=== PATIENT | male | born 1965 | race Caucasian/White ===

== ENCOUNTER 2019-08-05 15:01 | Outpatient (CLI) | payer MEDICARE, SELFPAY ==
--- NOTE | ~2019-08-05 | XR_ITS ---
EXAMINATION: XR shoulder LT min 2V DATE: 08/05/2019 15:44 INDICATION: Left shoulder pain. TECHNIQUE: 2 views of left shoulder were obtained. COMPARISON: None. FINDINGS: Bone alignment is normal. No fracture. There is mild osteoarthritis of glenohumeral joint a nd acromioclavicular joint. IMPRESSION: 1. Mild polyarticular osteoarthritis. Reviewed, dictated and finalized at location A. FERRY MASTER
--- NOTE | ~2019-08-05 | XR_ITS ---
EXAMINATION: XR shoulder RT min 2V EXAM DATE: 08/05/2019 15:43 INDICATION: No known recent injury provided at this time. Pain of the right shoulder. TECHNIQUE: Frontal and lateral projections of the right shoulder. There is no prior study for get sosa. FINDINGS: There is mild to moderate glenohumeral and acromioclavicular joint primary osteoarthritis. There are no acute fractures or dislocations identified. There is no subcutaneous gas. The soft tis freddy is unremarkable. There are no radiopaque foreign bodies. IMPRESSION: Mild to moderate shoulder osteoarthritis. Reviewed, dictated and finalized at location B. NTEER ASSISTANT
== END 2019-08-05 15:02 | disposition home or self-care (01) ==
PROVIDERS: PCP Nurse Practitioner Family; Visit Provider Nurse Practitioner Family
DX: M25.511 Pain in right shoulder (principal); M25.512 Pain in left shoulder
CPT/HCPCS: 73030

== ENCOUNTER 2019-08-16 07:22 | Outpatient (CLI) | payer MEDICARE, SELFPAY ==
[2019-08-16 07:41] LABS: Hemoglobin A1C 8.6 % (<5.7)
== END 2019-08-16 07:23 | disposition home or self-care (01) ==
LOC: CHSLAB 07:25
PROVIDERS: PCP Nurse Practitioner Family; Visit Provider Nurse Practitioner Family
DX: E11.9 Type 2 diabetes mellitus without complications (principal)
CPT/HCPCS: 36415; 83036

== ENCOUNTER 2019-10-29 09:02 | Outpatient (CLI) | payer MEDICARE, SELFPAY ==
[2019-10-29 09:33] LABS: MALB Creatinine Ratio 58.1 mg/g (0-30); Microalbumin Urine Random 77.5 mg/L
[2019-10-29 10:23] LABS: Alanine Aminotransferase 37 U/L (16-63); Albumin Level 3.8 g/dL (3.4-5.0); Alkaline Phosphatase 88 U/L (46-116); Anion Gap 13.3 mmol/L (7-16); Aspartate Amino Transferase 26 U/L (15-37); Bilirubin,Total 0.5 mg/dL (0.00-1.00); Blood Urea Nitrogen 16 mg/dL (7-18); Calcium 8.9 mg/dL (8.5-10.1); Carbon Dioxide 29 mmol/L (21-32); Chloride 102 mmol/L (98-108); Cholesterol 107 mg/dL (0-200); Estimated Glomerular Filt Rate > 60; Glucose 212 mg/dL (70-99); HDL Direct 26 mg/dL (40-60); LDL Cholesterol Calculated 46 mg/dL (<130); Osmolality Calculated 297 mOsm/kg (285-295); Potassium 4.3 mmol/L (3.5-5.1); Sodium 140 mmol/L (136-145); Thyroid Stimulating Hormone 1.41 uIU/mL (0.36-3.74); Total Protein 7.2 g/dL (6.4-8.2); Triglycerides 175 mg/dL (0-150)
[2019-11-02 22:27] LABS: C-Peptide 2.22 ng/mL (0.80-3.85)
[2019-11-03 07:03] LABS: Glutamic acid decarboxylase AA <5 IU/mL (<5)
[2019-11-05 23:41] LABS: Zinc Transporter 8 Antibody <10 U/mL (<15)
[2019-11-06 23:26] LABS: Islet Cell Antibody Screen NEGATIVE (NEGATIVE)
== END 2019-10-29 09:03 | disposition home or self-care (01) ==
PROVIDERS: PCP Family Medicine; Visit Provider Internal Medicine Endocrinology, Diabetes & Metabolism
DX: E10.9 Type 1 diabetes mellitus without complications (principal); E66.01 Morbid (severe) obesity due to excess calories
CPT/HCPCS: 36415; 80053; 80061; 82043; 84443; 84681; 86341

== ENCOUNTER → 2020-04-18 13:40 | Outpatient (CLI) | payer MEDICARE, SELFPAY ==
--- NOTE | ~2020-04-18 | MR_ITS ---
EXAMINATION: MR lumbar spine wo con DATE: 04/18/2020 14:32 INDICATION: Lumbar radiculopathy. Low back pain. TECHNIQUE: Magnetic resonance imaging (MRI) of the lumbar spine was performed without intravenous con trast. Sequences included sagittal T2-weighted FSE, sagittal T2-weighted FS FSE, sagittal T1-weighted FSE, and axial T2-weighted FSE. COMPARISON: Lumbar spine MRI 06/10/2017 FINDINGS: There is 4 degrees dextrocurvature of lumbar spine. There are Schmorl's nodes at T11-T12 an d T12-L1. Intervertebral disc heights are normal. The distal spinal cord signal intensity is normal. The conus medullaris is at T12-L1. The following disc levels are specifically discussed: L1-L2: The disc does not extend beyond the endplate margin. There is moderate right and mild left fac et joint osteoarthritis. There is mild right neural foraminal stenosis. There is no central canal martin nosis. L2-L3: The disc is mildly bulging. There is severe bilateral facet joint osteoarthritis. There is mil d bilateral neural foraminal stenosis. There is no central canal stenosis. L3-L4: The disc is mildly bulging. There is severe bilateral facet joint osteoarthritis. There is mil d bilateral neural foraminal stenosis. There is no central canal stenosis. L4-L5: The disc does not extend beyond the endplate margin. There is severe bilateral facet joint ost eoarthritis. There is moderate bilateral neural foraminal stenosis. There is mild central canal steno sis. L5-S1: The disc does not extend beyond the endplate margin. There is severe right facet joint osteoar thritis. There is ankylosis of left facet joint with severe hypertrophy. There is mild right and mode rate left neural foraminal stenosis. There is no central canal stenosis. IMPRESSION: 1. Moderate lower lumbar spondylosis, worsened from 06/10/2017. Reviewed, dictated and finalized at location A.
== END ==
PROVIDERS: Visit Provider Nurse Practitioner Family
DX: G89.29 Other chronic pain (principal); M54.16 Radiculopathy, lumbar region; M47.816 Spondylosis without myelopathy or radiculopathy, lumbar region
CPT/HCPCS: 72148

== ENCOUNTER 2020-06-05 15:50 | Outpatient (CLI) | payer MEDICARE, SELFPAY ==
[2020-06-07 12:24] LABS: SARS-CoV-2 RNA PCR Positive
== END 2020-06-05 15:51 | disposition home or self-care (01) ==
LOC: CHSLAB 15:52
PROVIDERS: PCP Nurse Practitioner Family; Visit Provider Nurse Practitioner Family
DX: U07.1 COVID-19 (principal); R05 Cough
CPT/HCPCS: 87635; C9803; U0003

== ENCOUNTER 2020-06-30 08:46 | Outpatient (CLI) | payer MEDICARE, SELFPAY ==
[2020-07-01 19:32] LABS: SARS-CoV-2 RNA PCR Negative
== END 2020-06-30 08:47 | disposition home or self-care (01) ==
LOC: CHSLAB 08:49
PROVIDERS: PCP Family Medicine; Visit Provider Nurse Practitioner Family
DX: Z01.818 Encounter for other preprocedural examination (principal); Z20.822 Contact with and (suspected) exposure to COVID-19
CPT/HCPCS: C9803; U0003

== ENCOUNTER 2020-10-02 08:39 | Outpatient (CLI) | payer MEDICARE, SELFPAY | END 2020-10-02 08:40 | disposition home or self-care (01) | LOC: ANHCOVIDVC 08:39 | PROVIDERS: PCP Family Medicine | DX: Z23 Encounter for immunization (principal) | CPT/HCPCS: 0001A; 91300 ==

== ENCOUNTER 2020-10-23 08:30 | Outpatient (CLI) | payer MEDICARE, SELFPAY | END 2020-10-23 08:31 | disposition home or self-care (01) | LOC: ANHCOVIDVC 08:31 | PROVIDERS: PCP Family Medicine | DX: Z23 Encounter for immunization (principal) | CPT/HCPCS: 0002A; 91300 ==

== ENCOUNTER 2021-07-13 13:18 | Outpatient (CLI) | payer MEDICARE, SELFPAY ==
--- NOTE | ~2021-07-13 | CT_ITS ---
EXAMINATION: CT hip LT wo con, CT abdomen pelvis wo con DATE: 07/13/2021 13:49 INDICATION: 2 months of the left groin pain. Unilateral left inguinal hernia without obstruction. TECHNIQUE: 1. Computed tomography (CT) of the abdomen and pelvis was performed without intravenous contrast. Aut omated exposure control and iterative reconstruction technique were employed. The dose-length product for the combined studies was 1925.20 mGy-cm. 2. High resolution computed tomography (CT) of the left hip was performed without intravenous contras t. Additional sagittal and coronal reconstructions were performed. Automated exposure control and ite rative reconstruction technique were employed. The dose-length product for the combined studies was 1 925.20 mGy-cm. COMPARISON: Left hip radiographs dated 06/03/2017 FINDINGS: Abdomen and pelvis: Mild discoid atelectasis at the lingula. Heart size is normal. No pericardial or pleural effusion. Di ffuse hepatic steatosis. Gallbladder, spleen, pancreas, bilateral adrenal glands and kidneys are norm al. Bowels including the appendix are normal. Prostatomegaly. Bladder is normal. No free intraperiton eal gas or fluid. No pathologically enlarged abdominal or pelvic lymphadenopathy. Small fat-containin g left inguinal hernia. There are bridging osteophytes at multiple levels in the lower thoracic and u pper lumbar spine, consistent with diffuse idiopathic skeletal hyperostosis (DISH). Multilevel severe bilateral lumbar facet osteoarthritis spinal stimulator lead with partial supply to the subcutaneous tissues at the right buttock and with a pair of leads extending into the central canal at the level of T12-L1 and extending cephalad with distal tips at the level of T8. Left hip: Alignment is normal. No fracture or suspected avascular necrosis. Left hip osteoarthritis with mild t o moderate nonuniform joint space narrowing greatest posteriorly and with small marginal osteophytes and mild subarticular cystic change along the superolateral to posterior lateral rim of the acetabulu m. No left hip joint effusion. Similar findings are seen at the contralateral right hip on the larger field of view images of the pelvis. IMPRESSION: 1. No acute intra-abdominal/pelvic process. 2. Small fat-containing left inguinal hernia. 3. Mild to moderate bilateral hip osteoarthritis. 4. Prostatomegaly. 5. Diffuse hepatic steatosis. Reviewed, dictated and finalized at location A. OM POLISHER IMPRESSION: 1. No acute intra-abdominal/pelvic process. 2. Small fat-containing left inguinal hernia. 3. Mild to moderate bilateral hip osteoarthritis. 4. Prostatomegaly. 5. Diffuse hepatic steatosis.
== END 2021-07-13 13:19 | disposition home or self-care (01) ==
LOC: CHSIMG 13:21
PROVIDERS: PCP Family Medicine; Visit Provider Family Medicine
DX: K40.90 Unilateral inguinal hernia, without obstruction or gangrene, not specified as recurrent (principal); M16.12 Unilateral primary osteoarthritis, left hip
CPT/HCPCS: 73700; 74176

== ENCOUNTER 2021-08-20 08:21 | Outpatient (CLI) | payer MEDICARE, SELFPAY ==
--- NOTE | ~2021-08-20 | XR_ITS ---
EXAMINATION: XR hip LT 2V w AP pelvis EXAM DATE: 08/20/2021 08:39 INDICATION: Chronic left hip pain. TECHNIQUE: Left hip frontal, 'frog leg' projections for interpretation. Frontal projection pelvis. There is no prior study for comparison. FINDINGS: Smooth hip femoral head contour, no radiographic evidence of avascular necrosis. There are no acute pelvic or left hip fractures or dislocations identified. There is no subcutaneous gas. Th e soft tissue is unremarkable. Spine stimulator device. There is moderate symmetric bilateral hip p rimary osteoarthritis. IMPRESSION: Moderate hip osteoarthritis. Reviewed, dictated and finalized at location B. N AMERICAN STUDIES PROFESSOR
== END 2021-08-20 08:22 | disposition home or self-care (01) ==
LOC: CHSIMG 08:24
PROVIDERS: PCP Family Medicine; Visit Provider Orthopaedic Surgery
DX: M25.552 Pain in left hip (principal)
CPT/HCPCS: 73502

== ENCOUNTER 2021-08-24 07:34 | Outpatient (CLI) | payer MEDICARE, SELFPAY ==
--- NOTE | ~2021-08-24 | XR_ITS ---
EXAMINATION: XR lg joint inject/aspiration EXAM DATE: 08/24/2021 09:20 INDICATION: Left hip arthritis, left hip pain. TECHNIQUE: This procedure was performed by Dr. Pramod Perez, radiologist. I discussed procedure inclu ding the risks, benefits and alternatives with the patient. Risks discussed included bleeding and inf ection. The patient understood the risks and agreed to proceed. A time-out was performed to verify the patient's name, date of , and procedure. The skin over lying the left hip joint was prepped and draped in usual sterile fashion. Anesthetic was administere d with 3 milliliters 1% lidocaine subcutaneously. A 22 G 5 inch needle was advanced under fluoroscop ic guidance into the joint. Total of 2 mL of Omnipaque 240 confirmed intra-articular position of t he needle. Subsequently, injectate consisting of 80 mg Depo-Medrol and 2 cc bupivacaine was instille d. The needle was removed and the entry site was cleaned and dressed. There were no immediate comp lications. Pulsed dose reduction fluoroscopy was used with fluoroscopic time of 0.1 minus. The DAP for this procedure was 0.73 Gycm2. A total of 4 images obtained for the exam. The procedure was perf ormed on 08/24/2021. FINDINGS: Real-time fluoroscopy demonstrates the needle and contrast in the left hip joint. Patient s tates preprocedure left hip pain was 8.5, post procedure pain 6/10. IMPRESSION: Successful left hip joint injection. Reviewed, dictated and finalized at location D. HER VOCATIONAL TRAINING
== END 2021-08-24 07:35 | disposition home or self-care (01) ==
LOC: CHSIMG 07:36
PROVIDERS: PCP Family Medicine; Visit Provider Orthopaedic Surgery
DX: M16.12 Unilateral primary osteoarthritis, left hip (principal)
CPT/HCPCS: 20610; J1030; Q9965

== ENCOUNTER 2021-08-28 12:04 | Outpatient (CLI) | payer MEDICARE, SELFPAY ==
[2021-08-28 16:59] LABS: Anion Gap 8 mmol/L (8-16); Blood Urea Nitrogen 17 mg/dL (9-20); Calcium 9.6 mg/dL (8.4-10.2); Carbon Dioxide 29 mmol/L (22-30); Chloride 97 mmol/L (98-107); Estimated Glomerular Filt Rate > 60; Glucose 260 mg/dL (65-110); HDL Direct 28 mg/dL; Potassium 4.4 mmol/L (3.4-5.0); Sodium 134 mmol/L (137-145)
[2021-08-28 17:05] LABS: Creatinine Urine 91.7 mg/dL
[2021-08-28 17:09] LABS: LDL Cholesterol Direct 53 mg/dL; MALB Creatinine Ratio 139.7 mg/g (0-30); Microalbumin Urine Random 128.1 mg/L (0-16.7)
== END 2021-08-28 12:05 | disposition home or self-care (01) ==
LOC: ANHWCLAB 12:05
PROVIDERS: PCP Family Medicine; Visit Provider Internal Medicine Endocrinology, Diabetes & Metabolism
DX: E11.9 Type 2 diabetes mellitus without complications (principal); E78.5 Hyperlipidemia, unspecified; Z79.4 Long term (current) use of insulin
CPT/HCPCS: 36415; 80048; 82043; 82607; 83718; 83721; 84443

== ENCOUNTER 2022-08-22 07:20 | Outpatient (CLI) | payer MEDICARE, SELFPAY ==
[2022-08-22 07:47] LABS: Creatinine Urine 96.44 mg/dL (40-278); MALB Creatinine Ratio 94.9 mg/g (0-30); Microalbumin Urine Random 91.6 mg/L
[2022-08-22 09:45] LABS: Alanine Aminotransferase 30 U/L (16-63); Alkaline Phosphatase 81 U/L (46-116); Anion Gap 4 mmol/L (8-16); Aspartate Amino Transferase 23 U/L (15-37); Bilirubin,Total 0.5 mg/dL (0.00-1.00); Calcium 9.2 mg/dL (8.5-10.1); Carbon Dioxide 33 mmol/L (21-32); Chloride 103 mmol/L (98-108); Cholesterol 111 mg/dL (0-200); Estimated Glomerular Filt Rate > 60; Free T4 Free Thyroxine 1.02 ng/dL (0.76-1.46); Glucose 164 mg/dL (70-99); HDL Direct 29 mg/dL (40-60); LDL Cholesterol Calculated 51 mg/dL (<130); Potassium 4.2 mmol/L (3.5-5.1); Sodium 140 mmol/L (136-145); Thyroid Stimulating Hormone 2.88 uIU/mL (0.36-3.74); Total Protein 7.8 g/dL (6.4-8.2); Triglycerides 155 mg/dL (0-150); Vitamin B12 419 pg/mL (193-986)
[2022-08-22 09:49] LABS: Blood Urea Nitrogen 20 mg/dL (7-18); Osmolality Calculated 296 mOsm/kg (285-295)
[2022-08-25 21:05] LABS: Vitamin D 25 Hydroxy 14 ng/mL (30-100)
== END 2022-08-22 07:21 | disposition home or self-care (01) ==
LOC: CHSLAB 07:22
PROVIDERS: PCP Family Medicine; Visit Provider Nurse Practitioner Family
DX: R80.9 Proteinuria, unspecified (principal); I15.2 Hypertension secondary to endocrine disorders; E78.5 Hyperlipidemia, unspecified; E11.69 Type 2 diabetes mellitus with other specified complication; E11.65 Type 2 diabetes mellitus with hyperglycemia; E11.59 Type 2 diabetes mellitus with other circulatory complications; E11.29 Type 2 diabetes mellitus with other diabetic kidney complication; Z79.4 Long term (current) use of insulin
CPT/HCPCS: 36415; 80053; 80061; 82043; 82306; 82607; 84439; 84443

== ENCOUNTER 2022-09-23 10:18 | Outpatient (CLI) | payer MEDICARE, SELFPAY ==
[2022-09-23 11:22] LABS: Prostate Specific Antigen 1.4 ng/mL (< OR = 4.0)
== END 2022-09-23 10:19 | disposition home or self-care (01) ==
LOC: CHSLAB 10:19
PROVIDERS: PCP Nurse Practitioner Family; Visit Provider Nurse Practitioner Family
DX: R39.12 Poor urinary stream (principal); Z12.5 Encounter for screening for malignant neoplasm of prostate
CPT/HCPCS: 36415; 84153; G0103

== ENCOUNTER 2023-07-14 07:13 | Outpatient (CLI) | payer MEDICARE, SELFPAY ==
--- NOTE | ~2023-07-14 | XR_ITS ---
Right Shoulder Technique: AP and scapular Y views were obtained. Clinical History: Pain Findings: No fracture or dislocation is seen. Osseous alignment is anatomic. The glenohumeral and acr omioclavicular joint spaces are preserved. Soft tissues are unremarkable. Impression: Unremarkable right shoulder radiographs. Reviewed, dictated and finalized at [facility]. NHOUSE INSTRUCTOR Impression: Unremarkable right shoulder radiographs.
--- NOTE | ~2023-07-14 | XR_ITS ---
XR_[id number]_CR 07/14/2023 08:04 Indication: Neck pain. Bilateral shoulder pain. Procedure: 4 view cervical spine Comparison: 02/27/2017 Findings: There is disc narrowing at C5-6 and C6-7. Prominent ventral osteophytes at multiple levels. There is moderate multilevel uncinate and facet hypertrophy. Odontoid process is normal. Lateral mas ses normally aligned. No prevertebral soft tissue swelling. Impression: 1: Moderate cervical spondylosis. Reviewed, dictated and finalized at location B. STEWARD Impression: 1: Moderate cervical spondylosis.
--- NOTE | ~2023-07-14 | XR_ITS ---
Left Shoulder Technique: AP and scapular Y views were obtained. Clinical History: Pain Findings: No fracture or dislocation is seen. Osseous alignment is anatomic. The glenohumeral and acr omioclavicular joint spaces are preserved. Soft tissues are unremarkable. Impression: Unremarkable left shoulder radiographs. Reviewed, dictated and finalized at [facility]. HAULER Impression: Unremarkable left shoulder radiographs.
[2023-07-14 07:39] LABS: MALB Creatinine Ratio 46.5 mg/g (0-30); Microalbumin Urine Random 64.5 mg/L
[2023-07-14 08:33] LABS: Alanine Aminotransferase 41 U/L (16-63); Albumin Level 3.7 g/dL (3.4-5.0); Alkaline Phosphatase 80 U/L (46-116); Anion Gap 9 mmol/L (8-16); Aspartate Amino Transferase 23 U/L (15-37); Bilirubin,Total 0.4 mg/dL (0.00-1.00); Blood Urea Nitrogen 17 mg/dL (7-18); Calcium 8.8 mg/dL (8.5-10.1); Carbon Dioxide 30 mmol/L (21-32); Chloride 99 mmol/L (98-108); Cholesterol 112 mg/dL (0-200); Estimated Glomerular Filt Rate > 60; Glucose 168 mg/dL (70-99); HDL Direct 27 mg/dL (40-60); LDL Cholesterol Calculated 45 mg/dL (<130); Osmolality Calculated 291 mOsm/kg (285-295); Potassium 3.7 mmol/L (3.5-5.1); Sodium 138 mmol/L (136-145); Thyroid Stimulating Hormone 3.44 uIU/mL (0.36-3.74); Total Protein 7.5 g/dL (6.4-8.2); Triglycerides 202 mg/dL (0-150); Vitamin B12 388 pg/mL (193-986)
[2023-07-17 11:38] LABS: Vitamin D 25 Hydroxy 36 ng/mL (30-100)
== END 2023-07-14 07:14 | disposition home or self-care (01) ==
LOC: CHSLAB 07:15
PROVIDERS: PCP Family Medicine; Visit Provider Internal Medicine Endocrinology, Diabetes & Metabolism
DX: R80.9 Proteinuria, unspecified (principal); E78.5 Hyperlipidemia, unspecified; E55.9 Vitamin D deficiency, unspecified; E11.69 Type 2 diabetes mellitus with other specified complication; E11.29 Type 2 diabetes mellitus with other diabetic kidney complication; M43.02 Spondylolysis, cervical region
CPT/HCPCS: 36415; 72040; 73030; 80053; 80061; 82043; 82306; 82607; 84443

== ENCOUNTER 2023-07-15 10:55 | Outpatient (RCR) | payer MEDICARE, SELFPAY ==
[2023-07-15 11:09] VITALS: BP_SYST 152; BP_SYST 168
--- NOTE | 2023-07-15 11:55 | OPREHPOC ---
Outpatient Therapy Plan of Care This is a Multidisciplinary Plan of Care that may contain components documented by all disciplines (PT, OT, and ST.) PT Problem 1 PT Problem #1 Knowledge Deficit PT Goal 1 Goal Patient to demonstrate independence with HEP Target Visit 5 PT Problem 2 PT Problem #2 Pain PT Goal 1 Goal 1. Patient to report highest neck pain at 2/10 2. Patient to report no sleep disturbance due to neck pain Target Visit 10 PT Problem 3 PT Problem #3 Impaired Range of Motion PT Goal 1 Goal 1. Patient to demonstrate 60 deg of cervical rotation to return to driving without restriction 2. Patient to demonstrate 160 deg of B shoulder flexion with no increase in pain to return to house hold activities at PLOF Target Visit 10 PT Problem 4 PT Problem #4 Impaired Functional Mobil PT Goal 1 Goal 1. Patient to demonstrate 20% improvement on Quick Dash 2. Patient to demonstrate 20% improvement on NDI 3. Patient to report ability to lift objects over head for house hold tasks with no increase in B shoulder pain Target Visit 10
--- NOTE | 2023-07-15 11:56 | PTOPEVAL1 ---
Assessment and note entered by Vanessa Lowe DPT Evaluation Information Assessment Status Evaluation Diagnosis B shoulder pain, neck pain Onset 07/10/23 Subjective Information Patient reports he has had pain for the last year with worsening over the last month. He reports that neck pain is worse than B shoulder pain. He reports the L shoulder is worse than the R. He denies any radiating pain and headaches. He reports difficulty with sleeping, looking over his shoulder when driving and lifting objects. He also has back pain with a spinal stimulator and is on a disability. RTMD on 08/06/23. Reported Pain Level Pain Score 5,2,6: Self Report Assessment PT Clinical Summary Mr. Izquierdo is a 57 year old male who presents to PT with B shoulder and neck pain. Patient demonstrates decreased cervical ROM, decreased B shoulder ROM and impaired posture limiting his ability to sleep, drive and complete house hold tasks. He would benefit from skilled PT to address impairments and return to PLOF. Plan of Care Interventions Electrical Stimulation,Gait Training,Hot Pack/Cold Pack,Manual Therapy,Mechanical Traction,Neuro Re- education,Patient/Caregiver Educati,Therapeutic Activities,Therapeutic Exercise PT Services Indicated Yes Treatment Frequency and 2x weekly for 10 visits Duration These treatments will address the objective and functional deficits as defined above. The patient will be advanced safely and appropriately in order for the patient to progress towards his/her prior level of function. Additional exercises will be introduced and as well as a comprehensive home exercise program upon discharge, if needed, ?to ensure carryover of functional gains achieved in the clinic. This treatment plan has been reviewed and agreement upon by the patient.
--- NOTE | 2023-08-21 07:21 | PCPTNOTE ---
patient called and stated he could not make it in today
[2023-08-28 08:51] VITALS: BP_SYST 152; BP_SYST 168
--- NOTE | 2023-08-28 10:57 | OPREHPOC ---
Outpatient Therapy Plan of Care This is a Multidisciplinary Plan of Care that may contain components documented by all disciplines (PT, OT, and ST.) PT Problem 1 PT Problem #1 Knowledge Deficit PT Goal 1 Goal Patient to demonstrate independence with HEP Target Visit 5 Progress Met PT Problem 2 PT Problem #2 Pain PT Goal 1 Goal 1. Patient to report highest neck pain at 2/10 2. Patient to report no sleep disturbance due to neck pain Target Visit 10 Progress Not Met PT Problem 3 PT Problem #3 Impaired Range of Motion PT Goal 1 Goal 1. Patient to demonstrate 60 deg of cervical rotation to return to driving without restriction 2. Patient to demonstrate 160 deg of B shoulder flexion with no increase in pain to return to house hold activities at PLOF Target Visit 10 Progress Partially Met Comment cervical not met PT Problem 4 PT Problem #4 Impaired Functional Mobil PT Goal 1 Goal 1. Patient to demonstrate 20% improvement on Quick Dash 2. Patient to demonstrate 20% improvement on NDI 3. Patient to report ability to lift objects over head for house hold tasks with no increase in B shoulder pain Target Visit 10 Progress Not Met
--- NOTE | 2023-08-28 10:57 | PTOPDC ---
Assessment and note entered by Vanessa Bui DPT Evaluation Information Assessment Status Discharge Diagnosis B shoulder pain, neck pain Onset 07/10/23 Subjective Information patient reports that both shoulder have improved with less pain. he reports the neck is still sore but he does report feeling like he has more movement. he reports that his sleep has been most disturbed by other body regions. he states driving has improved but has soreness after 3 hours. he reports he is independent with HEP. Reported Pain Level Pain Score 3,2,1: Self Report Assessment PT Clinical Summary Mr. Izquierdo has attended 10 visits of skilled PT. He made progress during POC but did not meet all goals. He reports decreased in pain levels with improved mobility for driving and looking over his shoulder. He reports his sleep is still disturbed but due to hip pain rather than neck pain. He reports he is independent with HEP and is appropriate for DC at this time. Plan of Care PT Services Indicated No
== END 2023-08-28 11:04 | disposition home or self-care (01) ==
LOC: CHSPT 10:55
PROVIDERS: PCP Nurse Practitioner Family; Visit Provider Nurse Practitioner Family
DX: M25.512 Pain in left shoulder (principal); M25.511 Pain in right shoulder; M54.2 Cervicalgia
CPT/HCPCS: 97110; 97140; 97161

== ENCOUNTER 2023-10-09 14:01 | Outpatient (CLI) | payer MEDICARE, SELFPAY ==
--- NOTE | ~2023-10-09 | XR_ITS ---
EXAM: XR hip BI wo pelvis DATE: 10/09/2023 14:20 HISTORY: M25.551 - Pain in right hip . COMPARISON: None available. FINDINGS: Stimulator pack over the right pelvis. Normal mineralization. No fracture or dislocation. N o lytic or blastic lesion. Moderate bilateral superior hip joint space narrowing, subchondral scleros is, and subchondral/subcortical cyst. Pistol test center manager deformity on the right, and probably also on the le ft, partially obscured by positioning. Mild degenerative change in the bilateral SI joints. Scattered pelvic enthesopathy. No erosion or periosteal change. Soft tissues within normal limits. IMPRESSION: Moderate bilateral hip osteoarthritis. Reviewed, dictated and finalized at location K.
== END 2023-10-09 14:02 | disposition home or self-care (01) ==
LOC: CHSIMG 14:02
PROVIDERS: PCP Family Medicine; Visit Provider Nurse Practitioner Family
DX: M25.551 Pain in right hip (principal); M16.0 Bilateral primary osteoarthritis of hip
CPT/HCPCS: 73521

== ENCOUNTER 2023-11-05 13:17 | Outpatient (CLI) | payer MEDICARE, SELFPAY ==
--- NOTE | ~2023-11-05 | XR_ITS ---
EXAMINATION: XR lg joint inject/asp w image DATE: 11/05/2023 14:39 INDICATION: Right hip arthritis TECHNIQUE: A time-out was performed to verify the patient's name, date of , and procedure to b e performed. The procedure including the risks, benefits, and alternatives was discussed with the pat ient. Risks discussed included bleeding and infection. The patient understood the risks and agreed to proceed. The skin overlying the right hip joint was prepped and draped in usual sterile fashion. A nesthetic was administered with 1% lidocaine subcutaneously. A 22 G needle was advanced under fluoro scopic guidance into the joint. Injection of 1 mL of Omnipaque 240 confirmed intra-articular positio n of the needle. Subsequently, injectate consisting of 3 mL of a 2:1 mixture of 0.5% Marcaine: 80 mg /mm Depo-Medrol for a total dosage of 80 mg Depo-Medrol was instilled. Washout of contrast was seen c onfirming intra-articular administration. The needle was removed and the entry site was cleaned and d ressed. There were no immediate complications. Fluoroscopy exposure time was 0.1 minutes. The total number of images was 2. FINDINGS: Real-time fluoroscopy demonstrates the needle in the right hip joint. Patient's pain prior to procedure:8/10. Patient's pain following the procedure: 10/30. IMPRESSION: 1. Successful right hip joint injection of local anesthetic and steroid with decrease in the patient' s presenting pain. Reviewed, dictated and finalized at location A. IMPRESSION: 1. Successful right hip joint injection of local anesthetic and steroid with de crease in the patient's presenting pain.
== END 2023-11-05 13:18 | disposition home or self-care (01) ==
PROVIDERS: PCP Family Medicine; Visit Provider Orthopaedic Surgery
DX: M16.11 Unilateral primary osteoarthritis, right hip (principal)
CPT/HCPCS: 20610; 77002; J1010; Q9966

== ENCOUNTER 2024-10-18 09:15 | Outpatient (CLI) | payer MEDICARE, SELFPAY ==
--- OUTSIDE RECORDS SUMMARY | 2024-10-18 09:55 | XMS_ITS | Clinical Summary ---
Author Organization [facility] Address [address] [place] [id number] Care Team Providers Care Check Cashier Name Role Phone Unavailable Primary Care Provider Unavailabl e Social History Tobacco Use Types Packs/Day Years Used Date Smoking Tobacco: Never Assessed Sex and Gender Information Value Date Recorded Sex Assigned at Not on file Legal Sex Male 10:51 PM CDT Gender Identity Not on file Sexual Orientation Not on file Plan of Treatment Health Maintenance Due Date Last Done Comments Colorectal Cancer Screening Colonoscopy (10 Years) 1964 Annual Physical 10/02/1967 Hepatitis C 1982 DTaP, Tdap and Td Vaccines ( 1 - Tdap) 10/02/1983 Pneumococcal Vaccine: 50+ Ye ars (1 of 1 - PCV) 2014 Zoster Vaccines (1 of 2) 2014 COVID-19 Vaccine ( - 2023-2 5 season) 2024 RSV Immunization or 60+ Years (1 - 1-dose 75+ series) 10/02/2039 Meningococcal B Vaccine Aged Out No l onger eligible based on patient's age to complete this topic Meningococcal Vaccine Aged Out No jennifer cristo eligible based on patient's age to complete this topic RSV Immunizations Under 20 Months Aged Out No longer eligible based on patient's age to complete this topic
--- OUTSIDE RECORDS SUMMARY | 2024-10-18 09:55 | XMS_ITS ---
Author Organization [facility] Address [address] [place], [place] [address] Care Team Providers Care Ppa Teacher Name Role Phone Dovchristiano Antony Unavailable Unavailable YANA CHILDS Unavailable [phone] Allergies Allergen (clinical drug ingredient) Drug/Non Drug Allergy documented on EMR Reaction Allergy Type Onset Date Status Penicillin Unknown Drug Allergy Active REASON FOR VISIT *General care Medications Medication SIG (Take, Route, Frequency, Duration) Notes Start Date End Date Status Atenolol Active Vascepa Active Losartan Potassium A ctive dilTIAZem HCl Active hydroCHLOROthiazide Active HumuLIN R U-500 (CONCENTRATED) Active Encounters Encounter Location Date Provider Diagnosis [address] [id number] 05/27/2024 YANA CHILDS Unspecified atherosclerosis of ute arteries of extremities, bilateral legs I70.203 ; Tinea unguium B35.1 ; Type 2 diabetes mellitus with diabetic peripheral angiopathy without gangrene E11.51 ; Acquired keratosis [keratoderma] palmaris et plantaris L85.1 ; Pain in right toe(s) M79.674 ; Other hammer toe(s) (acquired), right foot M20.41 ; Other hammer toe(s) (acquired), left foot M20.42 and Pain in left toe(s) M79.675 Assessments Encounter Date Diagnosis (ICD Code) Assessment Notes Treatment Notes Treatment Clinical Notes Section Notes 05/27/2024 Unspecified atherosclerosis of ute arteries of extremities, bilateral legs (ICD-10 - I70.203) Patient educated on risks and aggravating factors of PVD, including conservative treatment options such as a diet and exercise regimen to aid in slowing progression of vascular disease 05/27/2024 Tinea unguium (ICD-10 - B35.1) Aseptic debridement of elongated thickened nails x 10 using sterile nippers, nails were debrided in length and thickness by 30% utilizing a nail nipper without incident. The patient was educated regarding all treatment options that include topical and oral antifungal treatments. I discussed the options of taking a sample of the nail to confirm diagnosis. Nail clippings were not sent for pathology analysis. The patient was educated why and how the fungal infection evolved in their feet and the patient was given information regarding how to prevent further infection. The patient was told to keep feet dry and change socks. The patient was told to be careful with old shoes and excessive sweating. The patient was educated regarding both OTC and prescription treatments. 05/27/2024 Type 2 diabetes mellitus with diabetic peripheral angiopathy without gangrene (ICD-10 - E11.51) Patient educated on proper diabetic foot care and the importance of tight glycemic control in regards to the prevention of diabetic manifestations and symptomatology in lower extremity. Explained to patient the importance of keeping interdigital spaces dry, not walking bare foot, having supportive shoe gear, using moisturizer to skin on feet daily especially in winter months, and checking feet daily for any new lesions or areas suspicious of trauma infection or ulceration. Explained to patient to return to ED if any change in foot health associated with signs of systemic infection including but not limited to nausea, vomiting, fever. 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 After removal of overlying extensive hyperkeratosis, healthy tissue was noted and care was taken to assure that no undermining or probing was present. It should be noted that no probing was noted and no infection or drainage was noted. 05/27/2024 Pain in right toe(s) (ICD-10 - M79.674) 05/27/2024 Other hammer toe(s) (acquired), right foot (ICD-10 - M20.41) The patient was educated regarding how to mechanically stabilize their deformity. The patient was given education about shoe recommendations specific for the condition. The patient was educated about custom orthotics and how appropriate shoes and orthotics can prevent further worsening of the deformity. The patient was educated about how bad shoe habits can worsen the condition. NSAIDS, P.T., injections and other conservative treatments were discussed. Both surgical and non surgical treatments were discussed, but conservative options were emphasized. 05/27/2024 Other hammer toe(s) (acquired), left foot (ICD-10 - M20.42) 05/27/2024 Pain in left toe(s) (ICD-10 - M79.675) Plan Of Treatment Treatment Notes Assessment Notes Unspecified atherosclerosis of ute arteries of extremities, bilateral legs Patient educated on risks and aggravating factors of PVD, including conservative treatment options such as a diet and exercise regimen to aid in slowing progression of vascular disease Tinea unguium Aseptic debridement of elongated thickened nails x 10 using sterile nippers, nails were debrided in length and thickness by 30% utilizing a nail nipper without incident. The patient was educated regarding all treatment options that include topical and oral antifungal treatments. I discussed the options of taking a sample of the nail to confirm diagnosis. Nail clippings were not sent for pathology analysis. The patient was educated why and how the fungal infection evolved in their feet and the patient was given information regarding how to prevent further infection. The patient was told to keep feet dry and change socks. The patient was told to be careful with old shoes and excessive sweating. The patient was educated regarding both OTC and prescription treatments. Type 2 diabetes mellitus wit h diabetic peripheral angiopathy without gangrene Patient educated on proper diabetic foot care and the importance of tight glycemic control in regards to the prevention of diabetic manifestations and symptomatology in lower extremity. Explained to patient the importance of keeping interdigital spaces dry, not walking bare foot, having supportive shoe gear, using moisturizer to skin on feet daily especially in winter months, and checking feet daily for any new lesions or areas suspicious of trauma infection or ulceration. Explained to patient to return to ED if any change in foot health associated with signs of systemic infection including but not limited to nausea, vomiting, fever. Acquired keratosis [keratode rma] palmaris et plantaris Pre-ulcerative keratoderma debrided sharply down to the level of healthy tissue using a 15 blade. After removal of overlying extensive hyperkeratosis, healthy tissue was noted and care was taken to assure that no undermining or probing was present. It should be noted that no probing was noted and no infection or drainage was noted. Other hammer toe(s) (acquired), right fo ot The patient was educated regarding how to mechanically stabilize their deformity. The patient was given education about shoe recommendations specific for the condition. The patient was educated about custom orthotics and how appropriate shoes and orthotics can prevent further worsening of the deformity. The patient was educated about how bad shoe habits can worsen the condition. NSAIDS, P.T., injections and other conservative treatments were discussed. Both surgical and non surgical treatments were discussed, but conservative options were emphasized. Next Appt Details Follow Up: 3 Months, Reason: Provider Name:LANA HEIN, 10/21/2024 03:50:00 PM, [address] [place] [address], [phone], Progress Notes * Edil IZQUIERDODOB:[birth year] (58 yo M)Acc No.[id number]:05/27/2024 Patient: Flaco JAYANAILAEdil Provider: Wayne CHILDS :1965 A ge:58 Y S ex:Male Date:05/27/2024 Address:[address] [place], [place] [id number] Subjective: * Chief Complaints: * 1 . *General care. * HPI: H PI: General care Troy wesley presents to the office for diabetic foot care. Patient states that their nails are thickened, elongated and painful. Patient states that it is aggravated by shoe gear. Onset is gradual., Patient denies taking blood thinners., Date last seen by Dr. Borjas was 02/2024., Initials [facility]. * ROS: G eneral / Constitutional: Patient denies w eakness. R espiratory: Patient denies c hronic cough, shortness of breath, sputum production. C ardiovascular: Patient denies c hest pain, history of MO, irregular heartbeat. M usculoskeletal: Patient denies a rthritis, joint stiffness. P atient complains of h ammertoes. S kin: Patient complains of f ungal nails, calluses and corns.? N eurologic: Patient denies d izziness, gait abnormality, headache. * Medical History: * Medications: T aking HumuLIN R U-500 (CONCENTRATED) , Taking Vascepa , Taking Losartan Potassium , Taking dilTIAZem HCl , Taking hydroCHLOROthiazide , Taking Atenolol * Allergies: P enicillin. Objective: * Vitals: * Examination: P hysical Examination: V ascular: Dorsalis Pedis pulse noted at 1/4 right foot and 1/4 left foot and Posterior Tibial pulse noted at 1/4 right foot and 1/4 left foot, Capillary refill times noted to be less than three seconds x ten, Temperature gradient noted to be warm to cool to bilateral foot, pedal hair present to bilateral foot and no varicosities are noted Dermatologic: there are no open lesions, no signs of active clinical infection, no erythema noted, no ecchymoses, nails are elongated thickened and dystrophic with subungual debris x ten, hyperkeratotic tissue plantar fifth metatarsal head bilateral foot Musculoskeletal: there is pain to palpation onto nail plate x ten, no calf pain noted bilaterally, arch height noted at 2/5 non-weight bearing bilaterally, first metatarsophalangeal joint range of motion 30 deg non-weight bearing bilaterally, flexible fifth digit hammer toe deformity noted to bilateral foot reducible with kelikian push up test, pain to palpation sub fifth metatarsal head hyperkeratotic tissue bilateral foot Neurology: protective sensation intact to light touch bilateral digits one through five, vibratory sensation intact to first metatarsophalangeal joint bilaterally. Assessment: * Assessment: 1. T inea unguium - B35.1 (Primary) 2 . U nspecified atherosclerosis of ute arteries of extremities, bilateral legs - I70.203 3 . T ype 2 diabetes mellitus with diabetic peripheral angiopathy without gangrene - E11.51 4 . A cquired keratosis [keratoderma] palmaris et plantaris - L85.1 5 . P ain in right toe(s) - M79.674 6 . O ther hammer toe(s) (acquired), right foot - M20.41 ?7. O ther hammer toe(s) (acquired), left foot - M20.42 8 . P ain in left toe(s) - M79.675 Plan: * Treatment: 2. U nspecified atherosclerosis of ute arteries of extremities, bilateral legs Notes: Patient educated on risks and aggravating factors of PVD, including conservative treatment options such as a diet and exercise regimen to aid in slowing progression of vascular disease ? 3. T ype 2 diabetes mellitus with diabetic peripheral angiopathy without gangrene Notes: Patient educated on proper diabetic foot care and the importance of tight glycemic control in regards to the prevention of diabetic manifestations and symptomatology in lower extremity. Explained to patient the importance of keeping interdigital spaces dry, not walking bare foot, having supportive shoe gear, using moisturizer to skin on feet daily especially in winter months, and checking feet daily for any new lesions or areas suspicious of trauma infection or ulceration. Explained to patient to return to ED if any change in foot health associated with signs of systemic infection including but not limited to nausea, vomiting, fever. 4. A cquired keratosis [keratoderma] palmaris et plantaris Notes: Pre-ulcerative keratoderma debrided sharply down to the level of healthy tissue using a 15 blade. After removal of overlying extensive hyperkeratosis, healthy tissue was noted and care was taken to assure that no undermining or probing was present. It should be noted that no probing was noted and no infection or drainage was noted. 5. O ther hammer toe(s) (acquired), right foot Notes: The patient was educated regarding how to mechanically stabilize their deformity. The patient was given education about shoe recommendations specific for the condition. The patient was educated about custom orthotics and how appropriate shoes and orthotics can prevent further worsening of the deformity. The patient was educated about how bad shoe habits can worsen the condition. NSAIDS, P.T., injections and other conservative treatments were discussed. Both surgical and non surgical treatments were discussed, but conservative options were emphasized. * Follow Up: 3 Months * Billing Information: * Visit Code: 79703 Office Visit, Est Pt., Level 3. * Procedure Codes: * E PROCESSING ENGINEER Sign off status: Completed true * Provider: Wayne CHILDS Date: 07/28/2023 Generated for Casandra kelly/Apollo/eTransmitting on: 0 10/18/2024 09:55 AM CDT History and Physical Notes * HPI (History of Present Illness) Category Sub-Category Detail Notes Category Not es HPI General care Patient presents to the office for diabetic foot care. Patient states that their nails are thickened, elongated and painful. Patient states that it is aggravated by shoe gear. Onset is gradual., Patient denies taking blood thinners., Date last seen by Dr. Borjas was 02/2024., Initials [facility] Examination Category Sub-Category Detail Notes Category Not es Physical Examination Vascular: Dorsalis Pedis pulse noted at 1/4 right foot and 1/4 left foot and Posterior Tibial pulse noted at 1/4 right foot and 1/4 left foot, Capillary refill times noted to be less than three seconds x ten, Temperature gradient noted to be warm to cool to bilateral foot, pedal hair present to bilateral foot and no varicosities are noted Dermatologic: there are no open lesions, no signs of active clinical infection, no erythema noted, no ecchymoses, nails are elongated thickened and dystrophic with subungual debris x ten, hyperkeratotic tissue plantar fifth metatarsal head bilateral foot Musculoskeletal: there is pain to palpation onto nail plate x ten, no calf pain noted bilaterally, arch height noted at 2/5 non-weight bearing bilaterally, first metatarsophalangeal joint range of motion 30 deg non-weight bearing bilaterally, flexible fifth digit hammer toe deformity noted to bilateral foot reducible with kelikian push up test, pain to palpation sub fifth metatarsal head hyperkeratotic tissue bilateral foot Neurology: protective sensation intact to light touch bilateral digits one through five, vibratory sensation intact to first metatarsophalangeal joint bilaterally
--- OUTSIDE RECORDS SUMMARY | 2024-10-18 09:56 | XMS_ITS | Encounter Summary ---
Author Organization [facility] Address [address] [place] [address] Phone Care Team Providers Care Gi Tech Name Role Phone Shaan Gallegos MD Primary Care Provider Reason for Referral * Radiology Services (Routine) - Closed Specialty Diagnoses / Procedures Referred By Razia fernández Referred To Contact Radiology Diagnoses Pre-op testing Procedures EKG 12 LEAD Pretty Marrero MD Phone: tel: fax: Referral ID Status Reason Start Date Expiration Date Visits Re quested Visits Authorized [id number] Closed 08/10/2020 1 1 [facility] LAB SCIENTIST Encounter Details Date Type Department Care Team (Late st Contact Info) Description 08/10/2020 Transcribe Orders [facility] Preop/Pacu II [address] [place] [id number] Pretty Marrero MD [address] [place] [address] Pre-op testing (Primary Dx) Social History Tobacco Use Types Packs/Day Years Used Date Smoking Tobacco: Never Assessed Sex and Gender Information Value Date Recorded Sex Assigned at Not on file Legal Sex Male 7:12 PM CDT Gender Identity Not on file Sexual Orientation Not on file COVID-19 Exposure Response Date Recorded In the last month, have you been in contact with someone who was confirmed or suspected to have Coronavirus / COVID-19? No / Unsure 08/11/2020 8:34 AM MEDICAL LAB SCIENTIST documented as of this encounter Plan of Treatment Not on file documented as of this encounter Results * EKG 12 LEAD (08/15/2020 10:17 AM MEDICAL LAB SCIENTIST) Ventricular Rate BPM EXTERNAL EKG Atrial Rate BPM EXTERNAL EKG P-R Interval 226 ms EXTERNAL EKG QRS Duration 100 ms EXTERNAL EKG Q-T Duration 394 ms EXTERNAL EKG QTC CALCULATION 401 ms EXTERNAL EKG P Vesuvius 62 degrees EXTERNAL EKG R Vesuvius 55 degrees EXTERNAL EKG T Ves[place] 31 degrees EXTERNAL EKG 08/15/2020 10:1 7 AM MEDICAL LAB SCIENTIST Impressions EXTERNAL EKG - 08/17/2020 12:27 PM MEDICAL LAB SCIENTIST Sinus rhythm with 1st degree A-V block Comparison Summary: No serial comparison made Summary: Abnormal ECG Confirmed by Raquel Roberts [id number] on 08/17/2020 12:27:32 PM Narrative Procedure Note Shirley García MD - 08/17/2020 IMPRESSION: Sinus rhythm with 1st degree A-V block Comparison Summary: No serial comparison made Summary: Abnormal ECG Confirmed by Raquel Roberts [id number] on 08/17/2020 12:27:32 PM Pretty Marrero MD IMG ECG ORDERABLES Final Result EXTERNAL EKG * (ABNORMAL) ERYTHROCYTE SEDIMENTATION RATE (ESR) (08/15/2020 10:08 AM MEDICAL LAB SCIENTIST) ESR (SED RATE, ERYTHROCYTE SEDIMENTATION RATE) 23(H) <20 mm/h 08/15/2020 12:59 PM MEDICAL LAB SCIENTIST [facility] Comment: Patients presenting with increased level of fibrinogen, gamma globulins, or abnormally shaped RBCs could affect the results for the erythrocyte sedimentation rate (ESR). Results should be clinically correlated. Blood Venipuncture / Unknown 08/15/2020 10:08 AM MEDICAL LAB SCIENTIST 08/15/2020 12:00 PM MEDICAL LAB SCIENTIST Pretty Marrero MD HEMATOLOGY ORDERABLES Fi nal Result Performing Organization Address City/[facility]/ZIP Co de Phone Number [facility] [place] [address] * C-REACTIVE PROTEIN (CRP) QUANT (08/15/2020 10:08 AM MEDICAL LAB SCIENTIST) C-REACTIVE PROTEIN 0.39 <0.50 mg/dL 08/15/2020 1:40 PM MEDICAL LAB SCIENTIST [facility] Blood Venipuncture / Unknown 08/15/2020 10:08 AM MEDICAL LAB SCIENTIST 08/15/2020 11:59 AM MEDICAL LAB SCIENTIST Pretty Marrero MD CHEMISTRY ORDERABLES Fin al Result Performing Organization Address [facility] Co de Phone Number [facility] [place] [address] * SARS-COV-2 BY MOLECULAR (08/15/2020 10:08 AM MEDICAL LAB SCIENTIST) SARSCOV2 NOT DETECTED (Referen ce Range for this test is Not Detected ) [facility] THERMOFISHER FAST DX 08/16/2020 11:27 AM MEDICAL LAB SCIENTIST [facility] Comment:This test was perfor med by a PCR method. Other NASOPHARYNGEAL STRUCTURE / Unknown Non-Phlebotomy Collection / Unknown 08/15/2020 10:08 AM MEDICAL LAB SCIENTIST 08/15/2020 1:41 PM MEDICAL LAB SCIENTIST Narrative [facility] - 08/16/2020 11:27 AM MEDICAL LAB SCIENTIST Authorized Fact Sheets about this test for providers and patients are available at: https://www.fda.gov/medical-devices/sfqodgwqf-jnpcyowcpu-ilihyqb-devices/emergen cy-us e-authorizations Pretty Marrero MD MICROBIOLOGY - GENERAL O RDERABLES Final Result Performing Organization Address City/[facility]/ZIP Co de Phone Number [facility] [address] [place] [address], [place] * (ABNORMAL) URINALYSIS REFLEX IF INDICATED BY ABNORMAL RESULTS (08/15/2020 10:08 AM MEDICAL LAB SCIENTIST) Pathologist [facility] SPECIFIC GRAVITY 1.020 1.003 - 1.030 08/15/2020 12:50 PM MEDICAL LAB SCIENTIST [facility] URINE PH 6.0 5.0 - 9.0 08/15/2020 12:50 PM MEDICAL LAB SCIENTIST [facility] WBC ESTERASE Negative Negative 08/15/2020 12:50 PM MEDICAL LAB SCIENTIST [facility] NITRITE Negative Negative 08/15/2020 12:50 PM MEDICAL LAB SCIENTIST [facility] PROTEIN, RANDOM URINE 15 mg/dL(A) Negative 08/15/2020 12:50 PM MEDICAL LAB SCIENTIST [facility] URINE GLUCOSE, QUAL Negative Negative 08/15/2020 12:50 PM MEDICAL LAB SCIENTIST [facility] URINE KETONES Negative Negative 08/15/2020 12:50 PM MEDICAL LAB SCIENTIST [facility] UROBILINOGEN Normal Normal mg/dL 08/15/2020 12:50 PM MEDICAL LAB SCIENTIST [facility] URINE BILIRUBIN Negative Negative 12:50 PM MEDICAL LAB SCIENTIST [facility] URINE BLOOD Negative Negative grabiel/ul 08/15/2020 12:50 PM MEDICAL LAB SCIENTIST [facility] URINALYSIS COLOR Yellow 08/15/19 12:50 PM MEDICAL LAB SCIENTIST [facility] URINALYSIS CLARITY Clear 08/15/2020 12:50 PM MEDICAL LAB SCIENTIST [facility] Urine URINE SPECIMEN COLLECTION, CLEAN CATCH / Unknown Non-Phlebotomy Collection / Unknown 08/15/2020 10:08 AM MEDICAL LAB SCIENTIST 08/15/2020 11:57 AM MEDICAL LAB SCIENTIST Pretty Marrero MD URINE ORDERABLES Final R esult [facility] [place] [address] * (ABNORMAL) CMP (COMPREHENSIVE METABOLIC PANEL) (08/15/2020 10:08 AM MEDICAL LAB SCIENTIST) SODIUM 136 136 - 144 mmol/L 08/15/2020 1:40 PM [facility] POTASSIUM 3.9 3.5 - 5.1 mmol/L 08/15/2020 1:40 PM [facility] CHLORIDE 98(L) 100 - 110 mmol/L 08/15/2020 1:40 PM [facility] CO2, VENOUS 29 22 - 32 mmol/L 08/15/2020 1:40 PM [facility] ANION GAP 12.9 8.0 - 20.0 mmol/L 08/15/2020 1:40 PM [facility] GLUCOSE 198(H) 70 - 99 mg/dL 08/15/2020 1:40 PM [facility] BUN 18 6 - 20 mg/dL 08/15/2020 1:40 PM [facility] CREATININE, BLOOD 0.90 0.80 - 1.30 mg/dL 08/15/2020 1:40 PM [facility] BUN/CREATININE RATIO 20 12 - 20 ratio 08/15/2020 1:40 PM [facility] TOTAL PROTEIN 7.5 6.0 - 8.3 g/dL 08/15/2020 1:40 PM [facility] ALBUMIN 4.0 3.5 - 5.2 g/dL 08/15/2020 1:40 PM [facility] Comment: The colormetric methods used for the determination of Albumin may lead to falsely elevated test results in patients suffering from renal failure or insufficiency due to interference with other proteins. A/G RATIO 1.1 1.0 - 2.0 08/15/2020 1:40 PM [facility] CALCIUM 9.9 8.9 - 10.3 mg/dL 08/15/2020 1:40 PM [facility] T BILI 0.5 <=1.2 mg/dL 08/15/2020 1:40 PM [facility] SGOT (AST) 21 <=40 U/L 08/15/2020 1:40 PM MEDICAL LAB SCIENTIST [facility] SGPT (ALT) 26 <=41 U/L 08/15/2020 1:40 PM MEDICAL LAB SCIENTIST [facility] ALKALINE PHOSPHATASE 74 40 - 130 U/L 08/15/2020 1:40 PM MEDICAL LAB SCIENTIST [facility] GFR, EST. NONAFRICAN >60 >=60 08/15/2020 1:40 PM MEDICAL LAB SCIENTIST [facility] GFR, EST. >60 >=60 021 1:40 PM MEDICAL LAB SCIENTIST [facility] Comment: Creatinine Clearance is the preferred criteria for selecting drug dose adjustments in renally impaired patients. The GFR is provided as additional pertinent clinical information. GFR is reported in mL/min/1.73 sq m. IS THE PATIENT REQUIRED TO BE FASTING? No 08/15/2020 1:40 PM MEDICAL LAB SCIENTIST [facility] Blood Venipuncture / Unknown 08/15/2020 10:08 AM MEDICAL LAB SCIENTIST 08/15/2020 11:59 AM MEDICAL LAB SCIENTIST us Pretty Marrero MD CHEMISTRY ORDERABLES Fin al Result [facility] [place] [address] documented in this encounter Visit Diagnoses Diagnosis Pre-op testing- Primary Preoperative examination, unspecified Pre-op testing Preoperative examination, unspecified documented in this encounter Care Teams Gi Tech Relationship Specialty Start Date End Date Shaan Gallegos MD [address] [place] [id number] PCP - General Family Medicine 08/11/20 07/13/21 documented as of this encounter
--- OUTSIDE RECORDS SUMMARY | 2024-10-18 09:56 | XMS_ITS ---
Author Organization [facility] Address [address] [place], [place] [id number] Care Team Providers Care Fuse Maker Name Role Phone Dovchristiano Antony Unavailable Unavailable PATRICIA DONNELLY Unavailable [phone] Allergies Allergen (clinical drug ingredient) Drug/Non Drug Allergy documented on EMR Reaction Allergy Type Onset Date Status Penicillin Unknown Drug Allergy Active REASON FOR VISIT Patient presents for at-risk foot care . The patient has painful toenails and calluses that are causing difficulty with ambulation and shoegear. The onset is gradual Medications Medication SIG (Take, Route, Frequency, Duration) Notes Start Date End Date Status hydroCHLOROthiazide Active dilTIAZem HCl Active Atenolol Active Losartan Potassium A ctive Vascepa Active HumuLIN R U-500 (CONCENTRATED) Active Encounters Encounter Location Date Provider Diagnosis [address] [id number] 07/29/2024 PATRICIA DONNELYL Tinea unguium B35.1 ; Acquired keratosis [keratoderma] palmaris et plantaris L85.1 ; Atherosclerosis of [place] arteries of extremities with intermittent claudication, bilateral legs I70.213 ; Pain in right foot M79.671 and Pain in left foot M79.672 Assessments Encounter Date Diagnosis (ICD Code) Assessment Notes Treatment Notes Treatment Clinical Notes Section Notes 07/29/2024 Tinea unguium (ICD-10 - B35.1) Nails 1-5 Bilateral were debrided extensively with nail nippers and emery board, reducing length and girth to pink healthy tissue with any subungual debris and necrotic tissue removed 07/29/2024 Acquired keratosis [keratoderma] palmaris et plantaris (ICD-10 - L85.1) A total of 2 corns or calluses, as described in the note above, were cut and pared utilizing a #15 blade 07/29/2024 Atherosclerosis of [place] arteries of extremities with intermittent claudication, bilateral legs (ICD-10 - I70.213) 07/29/2024 Pain in right foot (ICD-10 - M79.671) 07/29/2024 Pain in left foot (ICD-10 - M79.672) Plan Of Treatment Treatment Notes Assessment Notes Tinea unguium Nails 1-5 Bilateral were debrided extensively with nail nippers and emery board, reducing length and girth to pink healthy tissue with any subungual debris and necrotic tissue removed Acquired keratosis [keratode rma] palmaris et plantaris A total of 2 corns or calluses, as described in the note above, were cut and pared utilizing a #15 blade Next Appt Details Follow Up: 10 - 12 weeks, Re ason: At-Risk Foot care, sooner if problems develop. Provider Name:LANA HEIN, 10/21/2024 03:50:00 PM, [address] [place] [address], [id number], Progress Notes * Edil IZQUIERDODOB:[birth year] (58 yo M)Acc No.[id number]:07/29/2024 Patient: Flaco SOLANGEEdil CHAPIN Provider: Martín Donnelly DPM :1965 A ge:58 Y S ex:Male Date:07/29/2024 Address:[address] [place], [place] [id number] Subjective: * Chief Complaints: * Troy wesley presents for at-risk foot care . The patient has painful toenails and calluses that are causing difficulty with ambulation and shoegear. The onset is gradual * HPI: H PI: General care Troy wesley presents to the office for diabetic foot care. Patient states that their nails are thickened, elongated and painful. Patient states that it is aggravated by shoe gear. Onset is gradual., Patient denies taking blood thinners., Date last seen by Dr. Borjas was 03/2024., Initials mca. * ROS: G eneral / Constitutional: Patient denies c hills, fever, weight loss. ? M usculoskeletal: Patient denies w eakness, broken foot bone. ? P eripheral Vascular: Patient denies p ain / cramping in legs after exertion, ulceration of feet. S kin: Patient complains of f ungal nails, nail changes, calluses and corns. N eurologic: Patient denies b alance difficulty, confusion, difficulty speaking, dizziness. * Medical History: * Surgical History: * Hospitalization/Major Diagno stic Procedure: * Social History: H istory of Alcohol/beer 1-2 per day History of Tobacco Quit Smoking. * Medications: T akingHumuLIN R U-500 (CONCENTRATED) Vascepa Losartan Potassium dilTIAZem HCl hydroCHLOROthiazide Atenolol Medication List reviewed and reconciled with the patientTaking HumuLIN R U-500 (CONCENTRATED) Taking Vascepa Taking Losartan Potassium Taking dilTIAZem HCl Taking hydroCHLOROthiazide Taking Atenolol Medication List reviewed and reconciled with the patient * Allergies: P enicillinno[Allergies Verified] Objective: * Vitals: * Examination: P hysical Examination: General appearance: A lert, pleasant, well-nourished and in no acute distress. D ermatologic: Skin findings: S kin is thin, atrophic and lacking pedal hair. Hypertrophic / hyperkeratotic lesion: p lantar aspect of the left and right hallux. Nail pathology: N ails 1, 2, 3, 4, and 5 bilateral are elongated, thick, discolored, and dystrophic with subungual debris. They are painful to palpation. ? V ascular: Dorsalis pedis pulse: 1 /4 b ilateral. Posterior tibial pulse: 0 /4 bilateral. Capillary refill: g reater than 3 seconds. Edema: N o edema bilateral. N eurologic: Gross sensation G rossly intact to light touch. There is negative Tinel's sign. M usculoskeletal: Muscle Strength M uscle strength is 5/5 in regards to dorsiflexion, plantarflexion, inversion, and eversion in bilateral lower extremities. ? Assessment: * Assessment: 1. T inea unguium - B35.1 (Primary) 2 . A cquired keratosis [keratoderma] palmaris et plantaris - L85.1 3 . A therosclerosis of [place] arteries of extremities with intermittent claudication, bilateral legs - I70.213 4 . P ain in right foot - M79.671 5 . P ain in left foot - M79.672 Plan: * Treatment: 2. A cquired keratosis [keratoderma] palmaris et plantaris Notes: A total of 2 corns or calluses, as described in the note above, were cut and pared utilizing a #15 blade * Procedure Codes: * Follow Up: 1 0 - 12 weeks (Reason: At-Risk Foot care, sooner if problems develop.) * Billing Information: * Visit Code: 28222 Office Visit, Est Pt., Level 3. * Procedure Codes: * KROOM ATTENDANT Sign off status: Completed true * Provider: Martín Donnelly DPM Date: 0 07/29/2024 Generated for Casandra kelly/Apollo/Manjit on: 0 10/18/2024 09:55 AM CDT History [...] Date last seen by Dr. Borjas was 03/2024., Initials mca Examination Category Sub-Category Detail Notes Category Not es Dermatologic Skin findings: Skin is thin, at rophic and lacking pedal hair Nail pathology: Nails 1, 2, 3, 4, an d 5 bilateral are elongated, thick, discolored, and dystrophic with subungual debris. They are painful to palpation Hypertrophic / hyperkeratotic lesion: pl joselin aspect of the left and right hallux Neurologic Gross sensation Grossly intact t o light touch. There is negative Tinel's sign Vascular Dorsalis pedis pulse: 1/ bilateral Edema: No edema bilateral Capillary refill: greater than 3 secon ds Posterior tibial pulse: 0/4 bilateral Physical Examination General appearance: Alert, pleasant, well-nourished and in no acute distress Musculoskeletal Muscle Strength Muscle strength is 5/5 in regards to dorsiflexion, plantarflexion, inversion, and eversion in bilateral lower extremities
--- OUTSIDE RECORDS SUMMARY | 2024-10-18 09:56 | XMS_ITS | Clinical Summary ---
Author Organization [facility] Address [address] [place] [address] Phone Care Team Providers Care Environmental Laboratory Technician Name Role Phone Unavailable Primary Care Provider Unavailabl e Allergies Active Allergy Reactions Criticality Noted Date Comments Penicillins Swelling 08/11/2020 Medications hydroCHLOROthia zide 25 MG Tablet Take 25 mg by mouth daily. Active rosuvastatin (CRESTOR) 20 MG Tablet Take 20 mg by mouth daily. Active atenolol (TENORMIN) 50 MG Tablet Take 50 mg by mouth daily. Active dilTIAZem (DILACOR XR) 240 MG CAPSULE SR 24 HR Take 240 mg by mouth daily. Active HYDROcodone-ilsa taminophen (NORCO) 5-325 MG Tablet Take 1 Tablet by mouth 2 times daily as needed. Active insulin lispro (HumaLOG) 100 UNIT/ML SolutionIndicat ions:USES SLIDING SCALE by Subcutaneous route 3 times daily (before meals). INSTRUCTED NOT TO TAKE AM OF SURGERY Indications: USES SLIDING SCALE Active Insulin Glargine (TOUJEO MAX SOLOSTAR SC) 80 Units by Subcutaneous route 2 times daily. INSTRUCTED NOT TO TAKE AM OF SURGERY Active Dulaglutide (TRULICITY SC) 125 Units by Subcutaneous route once a week. Active Icosapent Ethyl 1 g Capsule Take 2 Tablets by mouth. TAKES 2 TABLETS IN THE AM AND PM Active Family History Medical History Relation Name Comments Diabetes Father Hypertension Father Diabetes Mother High Cholesterol Mother Hypertension Mother Diabetes Sister Relation Name Status Comments Father Alive Mother Alive Sister Alive Social History Tobacco Use Types Packs/Day Years Used Date Smoking Tobacco: Former Cigarettes Q uit: 06/23/2020 Smokeless Tobacco: Former Chew Sex and Gender Information Value Date Recorded Sex Assigned at Not on file Legal Sex Male 7:12 PM CDT Gender Identity Not on file Sexual Orientation Not on file Last Filed Vital Signs Vital Sign Reading Time Taken Comments Blood Pressure 94/51 08/18/2020 1:45 PM STEAM SHOVEL OPERATING ENGINEER Pulse 66 08/18/2020 1:45 PM STEAM SHOVEL OPERATING ENGINEER Temperature 36 C (96.8 F) 08/18/2020 1:45 PM STEAM SHOVEL OPERATING ENGINEER Respiratory Rate 16 08/18/2020 1:45 PM STEAM SHOVEL OPERATING ENGINEER Oxygen Saturation 92% 08/18/2020 1:45 PM STEAM SHOVEL OPERATING ENGINEER Inhaled Oxygen Concentration - - Weight 158.9 kg (350 lb 4.8 oz) 08/18/2020 7:59 AM STEAM SHOVEL OPERATING ENGINEER Height 193 cm (6' 4 ) 08/18/2020 7:59 AM STEAM SHOVEL OPERATING ENGINEER Body Mass Index 42.64 08/18/2020 7:59 AM STEAM SHOVEL OPERATING ENGINEER Plan of Treatment Health Maintenance Due Date Last Done Comments Hepatitis C Virus (HCV) Screening 1965 TdaP Immunization 1965 Hepatitis B Immunization (1 of 3 - 19+ 3-dose series) 10/02/1983 Colonoscopy 2009 Colorectal Cancer Screening 2009 Cologuard 2014 Immunochemical Fecal Occult Blood 2014 Pneumococcal Immunization (5 0+ years) (1 of 1 - PCV) 2014 Zoster Immunization (1 of 2) 2014 Influenza Immunization (#1) 2024 04/29/2020 SARS-COV-2 Immunization ( season) 2024 05/21/2021, 10/23/2020, 10/02/2020 Respiratory Syncytial Virus (RSV) Immunization (Adult) (1 - 1-dose 75+ series) 10/02/2039 Meningococcal Immunization (ACWY) Aged Out No longer eligible b ased on patient's age to complete this topic Rotavirus Immunization Aged Out No lo nger eligible based on patient's age to complete this topic Medical Devices Implanted Type Area Order Checker Device Identifier Shelf Expiration Date Model / Serial / Lot Lead Kit Implanted:Qty: 1 on 08/18/2020 by Pretty Marrero MD at [facility] N/A: Spine Thoracic [employer] 07/11/2024 [id number] / [id number] / [id number] Lead Kit Implanted:Qty: 1 on 08/18/2020 by Pretty Marrero MD at [facility] N/A: Spine Thoracic [employer] 07/17/2024 [id number] / [id number] / [id number] Intellis Adaptive Stim Implanted:Qty: 1 on 08/18/2020 by Pretty Marrero MD at [facility] N/A: Back [employer] 10/04/2020 [id number] / [id number] / [id number] Insurance on file
--- OUTSIDE RECORDS SUMMARY | 2024-10-18 09:56 | XMS_ITS | Patient Health Record ---
Author Organization [facility] Address [address] [place], [place] [address] Care Team Providers Care Guard Museum Name Role Phone Antony Borjas Unavailable Unavailable PATRICIA DONNELLY Unavailable [phone] YANA CHILDS Unavailable [phone] Allergies Allergen (clinical drug ingredient) Drug/Non Drug Allergy documented on EMR Reaction Allergy Type Onset Date Status Penicillin Unknown Drug Allergy Active Reason For Referral No Information Medications Medication SIG (Take, Route, Frequency, Duration) Notes Start Date End Date Status hydroCHLOROthiazide Active dilTIAZem HCl Active Atenolol Active HumuLIN R U-500 (CONCENTRATED) Active Losartan Potassium A ctive Vascepa Active Vital Signs Height-cm 193.04 cm 01/15/2024 Weight-kg 160.12 kg 01/15/2024 Height 76 in 01/15/2024 Weight 353 lbs 01/15/2024 BMI 42.96 kg/m2 01/15/2024 Encounters Encounter Location Date Provider Diagnosis [facility] [address] [place], [place] [id number] 01/15/2024 YANA CHILDS Unspecified atherosclerosis of [place] arteries of extremities, bilateral legs I70.203 ; Tinea unguium B35.1 ; Type 2 diabetes mellitus with diabetic peripheral angiopathy without gangrene E11.51 ; Acquired keratosis [keratoderma] palmaris et plantaris L85.1 ; Pain in right toe(s) M79.674 ; Other hammer toe(s) (acquired), right foot M20.41 ; Other hammer toe(s) (acquired), left foot M20.42 and Pain in left toe(s) M79.[address] [id number] 03/18/2024 YANA AMADEO Unspecified atherosclerosis of [place] arteries of extremities, bilateral legs I70.203 ; Tinea unguium B35.1 ; Type 2 diabetes mellitus with diabetic peripheral angiopathy without gangrene E11.51 ; Acquired keratosis [keratoderma] palmaris et plantaris L85.1 ; Pain in right toe(s) M79.674 ; Other hammer toe(s) (acquired), right foot M20.41 ; Other hammer toe(s) (acquired), left foot M20.42 and Pain in left toe(s) M79.[address] [id number] 05/27/2024 YANA CHILDS Unspecified atherosclerosis of [place] arteries of extremities, bilateral legs I70.203 ; Tinea unguium B35.1 ; Type 2 diabetes mellitus with diabetic peripheral angiopathy without gangrene E11.51 ; Acquired keratosis [keratoderma] palmaris et plantaris L85.1 ; Pain in right toe(s) M79.674 ; Other hammer toe(s) (acquired), right foot M20.41 ; Other hammer toe(s) (acquired), left foot M20.42 and Pain in left toe(s) M79.[address] [id number] 07/29/2024 PATRICIA DONNELLY Tinea unguium B35.1 ; Acquired keratosis [keratoderma] palmaris et plantaris L85.1 ; Atherosclerosis of [place] arteries of extremities with intermittent claudication, bilateral legs I70.213 ; Pain in right foot M79.671 and Pain in left foot M79.672 Assessments Encounter Date Diagnosis (ICD Code) Assessment Notes Treatment Notes Treatment Clinical Notes Section Notes 01/15/2024 Unspecified atherosclerosis of [place] arteries of extremities, bilateral legs (ICD-10 - I70.203) Patient educated on risks and aggravating factors of PVD, including conservative treatment options such as a diet and exercise regimen to aid in slowing progression of vascular disease 01/15/2024 Tinea unguium (ICD-10 - B35.1) Aseptic debridement [...] educated regarding both OTC and prescription treatments. 03/18/2024 Unspecified atherosclerosis of [place] arteries of extremities, bilateral legs (ICD-10 - I70.203) Patient educated on risks and aggravating factors of PVD, including conservative treatment options such as a diet and exercise regimen to aid in slowing progression of vascular disease 03/18/2024 Tinea unguium (ICD-10 - B35.1) Aseptic debridement [...] regarding both OTC and prescription treatments. 05/27/2024 Unspecified atherosclerosis of [place] arteries of extremities, bilateral legs (ICD-10 - [...] educated regarding both OTC and prescription treatments. 07/29/2024 Tinea unguium (ICD-10 - B35.1) Nails [...] utilizing a #15 blade 07/29/2024 Atherosclerosis of [place] arteries of extremities with intermittent claudication, bilateral legs (ICD-10 - I70.213) 05/27/2024 Type 2 diabetes mellitus with diabetic [...] but not limited to nausea, vomiting, fever. 03/18/2024 Type 2 diabetes mellitus with diabetic peripheral [...] but not limited to nausea, vomiting, fever. 01/15/2024 Type 2 diabetes mellitus with diabetic peripheral [...] but not limited to nausea, vomiting, fever. 01/15/2024 Acquired keratosis [keratoderma] palmaris et plantaris (ICD-10 - L85.1) Pre-ulcerative keratoderma debrided sharply down to the level of healthy tissue using a 15 blade. After removal of overlying extensive hyperkeratosis, healthy tissue was noted and care was taken to assure that no undermining or probing was present. It should be noted that no probing was noted and no infection or drainage was noted. 03/18/2024 Acquired keratosis [keratoderma] palmaris et plantaris (ICD-10 [...] no infection or drainage was noted. 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 07/29/2024 Pain in right foot (ICD-10 - M79.671) 07/29/2024 Pain in left foot (ICD-10 - M79.672) 05/27/2024 Pain in right toe(s) (ICD-10 - M79.674) 03/18/2024 Pain in right toe(s) (ICD-10 - M79.674) 01/15/2024 Pain in right toe(s) (ICD-10 - M79.674) 01/15/2024 Other hammer toe(s) (acquired), right foot (ICD-10 [...] were discussed, but conservative options were emphasized. 03/18/2024 Other hammer toe(s) (acquired), right foot (ICD-10 [...] were emphasized. 05/27/2024 Other hammer toe(s) (acquired), right foot [...] toe(s) (acquired), left foot (ICD-10 - M20.42) 03/18/2024 Other hammer toe(s) (acquired), left foot (ICD-10 - M20.42) 01/15/2024 Other hammer toe(s) (acquired), left foot (ICD-10 - M20.42) 01/15/2024 Pain in left toe(s) (ICD-10 - M79.675) 03/18/2024 Pain in left toe(s) (ICD-10 - M79.675) 05/27/2024 Pain in left toe(s) (ICD-10 - M79.675) Plan Of Treatment Next Appt Details Provider Name:LANA HEIN, 10/21/2024 03:50:00 PM, [address] [place] [address], [id number], Insurance Providers Payer Name Payer Address Payer Phone Subscriber Number Group Number Insured Name Patient Relationship to Insured Coverage Start Date Coverage End Date [facility] [address] [address] [place], [place] [id number] Edil Izquierdo Self - patient is the insured
--- OUTSIDE RECORDS SUMMARY | 2024-10-18 09:56 | XMS_ITS ---
Author Organization [facility] Address [address] [place], [place] [address] Care Team Providers Care Cold Molding Press Operator Name Role Phone Dovchristiano Antony Unavailable Unavailable YANA CHILDS Unavailable [phone] Allergies Allergen (clinical drug ingredient) Drug/Non Drug Allergy documented on EMR Reaction Allergy Type Onset Date Status Penicillin Unknown Drug Allergy Active REASON FOR VISIT *General care Medications Medication SIG (Take, Route, Frequency, Duration) Notes Start Date End Date Status hydroCHLOROthiazide Active Losartan Potassium A ctive dilTIAZem HCl Active HumuLIN R U-500 (CONCENTRATED) Active Vascepa Active Atenolol Active Encounters Encounter Location Date Provider Diagnosis [address] [id number] 03/18/2024 YANA CHILDS Unspecified atherosclerosis of [place] arteries of extremities, bilateral legs I70.203 ; [...] Treatment Notes Treatment Clinical Notes Section Notes 03/18/2024 Unspecified atherosclerosis of [place] arteries of extremities, bilateral legs (ICD-10 - [...] regarding both OTC and prescription treatments. 03/18/2024 Type 2 diabetes mellitus with diabetic [...] not limited to nausea, vomiting, fever. 03/18/2024 Acquired keratosis [keratoderma] palmaris et plantaris [...] no infection or drainage was noted. 03/18/2024 Pain in right toe(s) (ICD-10 - M79.674) 03/18/2024 Other hammer toe(s) (acquired), right foot [...] were emphasized. 03/18/2024 Other hammer toe(s) (acquired), left foot (ICD-10 - M20.42) 03/18/2024 Pain in left toe(s) (ICD-10 - M79.675) Plan Of Treatment Treatment Notes Assessment Notes Unspecified atherosclerosis of [place] arteries of extremities, bilateral legs Patient educated [...] Reason: Provider Name:LANA HEIN, 10/21/2024 03:50:00 PM, [address] [place] [address], [phone], Progress Notes * Edil IZQUIERDODOB:[birth year] (58 yo M)Acc No.[id number]:03/18/2024 Patient: Flaco Edil SOLANO Provider: Wayne CHILDS :1965 A ge:58 Y S ex:Male Date:03/18/2024 Address:[address] [place], [place] [id number] Subjective: * Chief Complaints: * 1 . *General care. * HPI: H PI: General care Troy wesley presents to the office for diabetic foot care. Patient states that their nails are thickened, elongated and painful. Patient states that it is aggravated by shoe gear. Onset is gradual., Patient denies taking blood thinners., Date last seen by Dr. Borjas was 12/2023., Initials [facility]. * ROS: G eneral / Constitutional: Patient denies w eakness. R espiratory: Patient denies c hronic cough, shortness of breath, sputum production. C ardiovascular: Patient denies c hest pain, history of [place], irregular heartbeat. M usculoskeletal: Patient denies a [...] (Primary) 2 . U nspecified atherosclerosis of [place] arteries of extremities, bilateral legs - I70.203 [...] * Treatment: 2. U nspecified atherosclerosis of [place] arteries of extremities, bilateral legs Notes: Patient [...] Months * Billing Information: * Visit Code: 51720 Office Visit, Est Pt., Level 3. Modifiers: 25 * Procedure Codes: * Sign off status: Completed true * Provider: Wayne CHILDS Date: 0 03/18/2024 Generated for Casandra kelly/Apollo/eTransmitting on: 0 10/18/2024 09:56 AM CDT History and Physical Notes * [...] Date last seen by Dr. Borjas was 12/2023., Initials mca Examination Category Sub-Category Detail Notes [...]
[2024-10-18 10:11] LABS: Microalbumin Urine Random > 400.0 mg/L
[2024-10-18 11:03] LABS: Alanine Aminotransferase 38 U/L (16-63); Albumin Level 3.8 g/dL (3.4-5.0); Alkaline Phosphatase 119 U/L (46-116); Anion Gap 9 mmol/L (4-12); Aspartate Amino Transferase 22 U/L (15-37); Bilirubin,Total 0.5 mg/dL (0.00-1.00); Blood Urea Nitrogen 21 mg/dL (7-18); Carbon Dioxide 27 mmol/L (21-32); Chloride 103 mmol/L (98-108); Cholesterol 113 mg/dL (0-200); Estimated Glomerular Filt Rate > 60; Free T4 Free Thyroxine 1.07 ng/dL (0.76-1.46); Glucose 207 mg/dL (70-99); HDL Direct 29 mg/dL (40-60); LDL Cholesterol Calculated 25 mg/dL (<130); Osmolality Calculated 297 mOsm/kg (285-295); Potassium 4.3 mmol/L (3.5-5.1); Sodium 139 mmol/L (136-145); Thyroid Stimulating Hormone 2.01 uIU/mL (0.36-3.74); Total Protein 7.8 g/dL (6.4-8.2); Triglycerides 295 mg/dL (0-150); Vitamin B12 420 pg/mL (193-986)
[2024-10-19 17:58] LABS: Vitamin D 25 Hydroxy 54 ng/mL (30-100)
== END 2024-10-18 09:16 | disposition home or self-care (01) ==
LOC: CHSLAB 09:16
PROVIDERS: PCP Family Medicine; Visit Provider Nurse Practitioner Family
DX: E55.9 Vitamin D deficiency, unspecified (principal); E11.65 Type 2 diabetes mellitus with hyperglycemia; Z79.4 Long term (current) use of insulin; E11.69 Type 2 diabetes mellitus with other specified complication; E78.5 Hyperlipidemia, unspecified; E66.01 Morbid (severe) obesity due to excess calories
CPT/HCPCS: 36415; 80053; 80061; 82043; 82306; 82530; 82607; 84439; 84443

== ENCOUNTER 2024-11-04 07:42 | Outpatient (CLI) | payer MEDICARE, SELFPAY ==
--- OUTSIDE RECORDS SUMMARY | 2024-11-04 07:44 | XMS_ITS ---
Author Organization [facility] Address [address] [place], [place] [address] Care Team Providers Care Geodetic Surveyor Technologist Name Role Phone CONY PATRICIA Unavailable [phone] Antony Borjas Unavailable Unavailable Allergies Allergen (clinical drug ingredient) Drug/Non Drug [...] Duration) Notes Start Date End Date Status Losartan Potassium A ctive dilTIAZem HCl Active Vascepa Active hydroCHLOROthiazide Active Atenolol Active HumuLIN R U-500 (CONCENTRATED) Active Vital Signs Height 76 in 10/21/2024 Weight 353 lbs 10/21/2024 BMI 42.96 kg/m2 10/21/2024 Height-cm 193.04 cm 10/21/2024 Weight-kg 160.12 kg 10/21/2024 Encounters Encounter Location Date Provider Diagnosis [address] [id number] 10/21/2024 PATRICIA DALY Tinea unguium B35.1 ; Acquired keratosis [keratoderma] palmaris et plantaris L85.1 ; Atherosclerosis of [place] arteries of extremities with intermittent claudication, bilateral legs I70.213 ; Pain in right foot M79.671 and Pain in left foot M79.672 Assessments Encounter Date Diagnosis (ICD Code) Assessment Notes Treatment Notes Treatment Clinical Notes Section Notes 10/21/2024 Tinea unguium (ICD-10 - B35.1) Nails 1-5 Bilateral were debrided extensively with nail nippers and emery board, reducing length and girth to pink healthy tissue with any subungual debris and necrotic tissue removed 10/21/2024 Acquired keratosis [keratoderma] palmaris et plantaris (ICD-10 - L85.1) A total of 2 corns or calluses, as described in the note above, were cut and pared utilizing a #15 blade 10/21/2024 Atherosclerosis of [place] arteries of extremities with intermittent claudication, bilateral legs (ICD-10 - I70.213) 10/21/2024 Pain in right foot (ICD-10 - M79.671) 10/21/2024 Pain in left foot (ICD-10 - M79.672) [...] sooner if problems develop. Provider Name:LANA HEIN, 12/30/2024 03:30:00 PM, [address] [place] [address], [phone], Progress Notes * Edil IZQUIERDODOB:[birth year] (59 yo M)Acc No.[id number]:10/21/2024 Patient: Flaco Edil SOLANO Provider: Martín Daly DPM :1965 A ge:59 Y S ex:Male Date:10/21/2024 Address:[address] [place], [place] [id number] Subjective: * Chief Complaints: * 1 . Patient presents for at-risk foot care . The patient has painful toenails and calluses that are causing difficulty with ambulation and shoegear. The onset is gradual. * HPI: H PI: General care P atient presents to the office for diabetic foot care. Patient states that their nails are thickened, elongated and painful. Patient states that it is aggravated by shoe gear. Onset is gradual., Patient denies taking blood thinners., Date last seen by Dr. Borjas was 04/2024., Initials mca. * ROS: G eneral / Constitutional: Patient denies c hills, fever, weight loss. M usculoskeletal: Patient denies w eakness, broken foot bone. P eripheral Vascular: Patient denies p ain / cramping in legs after exertion, ulceration of feet. S kin: Patient complains of f ungal nails, nail changes, calluses and corns. N eurologic: Patient denies b alance difficulty, confusion, difficulty speaking, dizziness. * Medical History: * Family History: F ather: neuropathy, Diabetic, High Blood Pressure. M other: Diabetic, High Blood Pressure. S ister: Diabetic. * Social History: H istory of Alcohol/beer 1-2 per day History of Tobacco Quit Smoking. * Medications: T aking HumuLIN R U-500 (CONCENTRATED) , Taking Vascepa , Taking Losartan Potassium , Taking dilTIAZem HCl , Taking hydroCHLOROthiazide , Taking Atenolol , Medication List reviewed and reconciled with the patient * Allergies: P enicillin. Objective: * Vitals: S hoe Size: 14, Wt:353lbs, Wt-k.12 kg, Ht: 76 in, Ht-cm: 193.04 cm, BMI:42.96Index, Body Surface Area: 2.93. * Examination: P hysical Examination: General appearance: [...] subungual debris. They are painful to palpation. V ascular: Dorsalis pedis pulse: 1 /4 b ilateral. Posterior tibial pulse: 0 /4 bilateral. Capillary refill: g reater than 3 seconds. Edema: N o edema bilateral. N eurologic: Gross sensation G rossly intact to light touch. There is negative Tinel's sign. M usculoskeletal: Muscle Strength M uscle strength is 5/5 in regards to dorsiflexion, plantarflexion, inversion, and eversion in bilateral lower extremities. Assessment: * Assessment: 1. T inea unguium - B35.1 (Primary) 2 . A cquired keratosis [keratoderma] palmaris et plantaris - L85.1 3 . A therosclerosis of [place] arteries of extremities with intermittent claudication, bilateral legs - I70.213 4 . P ain in right foot - M79.671 5 . P ain in left foot - M79.672 Plan: * Treatment: 2. A cquired keratosis [keratoderma] palmaris et plantaris Notes: A total of 2 corns or calluses, as described in the note above, were cut and pared utilizing a #15 blade * Immunizations: Immunization record has been reviewed and updated. * Follow Up: 1 0 - 12 weeks (Reason: At-Risk Foot care, sooner if problems develop.) * Billing Information: * Visit Code: * Procedure Codes: * Electronic signature of PATRICIA DALY DPM on 11/04/2024 at 07:44 AM CDT Sign off status: Pending * Provider: Martín Daly DPM Date: 10/21/2024 Generated for Casandra Arteaga/Manjit on: 11/04/2024 07:44 AM CDT History and Physical Notes * [...] Date last seen by Dr. Borjas was 04/2024., Initials mca Examination Category Sub-Category Detail Notes [...] negative Tinel's sign Vascular Dorsalis pedis pulse: 1/4 bilateral Edema: No edema bilateral Capillary refill: greater than 3 secon ds Posterior tibial pulse: 0/4 bilateral Physical Examination General appearance: Alert, pleasant, well-nourished and in no acute distress Musculoskeletal Muscle Strength Muscle strength is 5/5 in regards to dorsiflexion, plantarflexion, inversion, and eversion in bilateral lower extremities
--- OUTSIDE RECORDS SUMMARY | 2024-11-04 07:44 | XMS_ITS | Clinical Summary ---
Author Organization [facility] Address [facility] [place] [address] Care Team Providers Care Solder Leveler Printed Circuit Boards Name Role Phone Unavailable Primary Care Provider [...]
--- OUTSIDE RECORDS SUMMARY | 2024-11-04 07:44 | XMS_ITS | Clinical Summary ---
Author Organization [facility] Address [address] [place] [address] Phone Care Team Providers Care Coal Dumping Equipment Operator Name Role Phone Unavailable Primary Care Provider [...] Comments Blood Pressure 94/51 08/18/2020 1:45 PM VISUAL LEAD Pulse 66 08/18/2020 1:45 PM VISUAL LEAD Temperature 36 C (96.8 F) 08/18/2020 1:45 PM VISUAL LEAD Respiratory Rate 16 08/18/2020 1:45 PM VISUAL LEAD Oxygen Saturation 92% 08/18/2020 1:45 PM VISUAL LEAD Inhaled Oxygen Concentration - - Weight 158.9 kg (350 lb 4.8 oz) 08/18/2020 7:59 AM VISUAL LEAD Height 193 cm (6' 4 ) 08/18/2020 7:59 AM VISUAL LEAD Body Mass Index 42.64 08/18/2020 7:59 AM VISUAL LEAD Plan of Treatment Health Maintenance Due Date [...] this topic Medical Devices Implanted Type Area Surg Rn Device Identifier Shelf Expiration Date Model / Serial / Lot Lead Kit Implanted:Qty: 1 on 08/18/2020 by Pretty Marrero MD at [facility] N/A: Spine Thoracic [employer] 07/11/2024 [id number] / [id number] / [id number] Lead Kit Implanted:Qty: 1 on 08/18/2020 by [facility] N/A: Spine Thoracic [employer] 07/17/2024 [id number] / [id number] / [id number] Intellis Adaptive Stim Implanted:Qty: 1 on 08/18/2020 by Pretty Marrero MD at [facility] N/A: Back [employer] 10/04/2020 [id number] / [id number] / [id number] Insurance on file
--- OUTSIDE RECORDS SUMMARY | 2024-11-04 07:45 | XMS_ITS | Patient Health Record ---
Author Organization [facility] Address [address] [place], [place] [address] Care Team Providers Care Wireless Construction Manager Name Role Phone PATRICIA DONNELLY Unavailable [phone] Antony Borjas Unavailable Unavailable YANA CHILDS Unavailable [phone] Allergies Allergen (clinical drug ingredient) Drug/Non Drug Allergy documented on EMR Reaction Allergy Type Onset Date Status Penicillin Unknown Drug Allergy Active Reason For Referral No Information Medications Medication SIG (Take, Route, Frequency, Duration) Notes Start Date End Date Status Losartan Potassium A ctive dilTIAZem HCl Active HumuLIN R U-500 (CONCENTRATED) Active Vascepa Active hydroCHLOROthiazide Active Atenolol Active Vital Signs Height-cm 193.04 cm 10/21/2024 Weight-kg 160.12 kg 10/21/2024 Height 76 in 10/21/2024 Weight 353 lbs 10/21/2024 BMI 42.96 kg/m2 10/21/2024 Encounters Encounter Location Date Provider Diagnosis [facility] [place] [address] [place], [place] [id number] 10/21/2024 PATRICIA DONNELLY Tinea unguium B35.1 ; Acquired keratosis [keratoderma] palmaris et plantaris L85.1 ; Atherosclerosis of [place] arteries of extremities with intermittent claudication, bilateral legs I70.213 ; Pain in right foot M79.671 and Pain in left foot M79.672 [facility] [address] [place], [place] [id number] 01/15/2024 YANA CHILDS Unspecified atherosclerosis of [place] arteries of extremities, bilateral legs I70.203 ; Tinea unguium B35.1 ; Type 2 diabetes mellitus with diabetic peripheral angiopathy without gangrene E11.51 ; Acquired keratosis [keratoderma] palmaris et plantaris L85.1 ; Pain in right toe(s) M79.674 ; Other hammer toe(s) (acquired), right foot M20.41 ; Other hammer toe(s) (acquired), left foot M20.42 and Pain in left toe(s) M79.[address] [id number] 03/18/2024 YANA CHILDS Unspecified atherosclerosis of [place] arteries of extremities, bilateral legs I70.203 ; Tinea unguium B35.1 ; Type 2 diabetes mellitus with diabetic peripheral angiopathy without gangrene E11.51 ; Acquired keratosis [keratoderma] palmaris et plantaris L85.1 ; Pain in right toe(s) M79.674 ; Other hammer toe(s) (acquired), right foot M20.41 ; Other hammer toe(s) (acquired), left foot M20.42 and Pain in left toe(s) M79.[address] [id number] 05/27/2024 YANA CHILDS Unspecified atherosclerosis of [place] arteries of extremities, bilateral legs I70.203 ; Tinea unguium B35.1 ; Type 2 diabetes mellitus with diabetic peripheral angiopathy without gangrene E11.51 ; Acquired keratosis [keratoderma] palmaris et plantaris L85.1 ; Pain in right toe(s) M79.674 ; Other hammer toe(s) (acquired), right foot M20.41 ; Other hammer toe(s) (acquired), left foot M20.42 and Pain in left toe(s) M79.[address] [id number] 07/29/2024 PATRICIA DONNELLY Tinea unguium B35.1 ; Acquired keratosis [keratoderma] palmaris et plantaris L85.1 ; Atherosclerosis of [place] arteries of extremities with intermittent claudication, bilateral legs I70.213 ; Pain in right foot M79.671 and Pain in left foot M79.672 Assessments Encounter Date Diagnosis (ICD Code) Assessment Notes Treatment Notes Treatment Clinical Notes Section Notes 01/15/2024 Unspecified atherosclerosis of [place] arteries of extremities, bilateral legs (ICD-10 - [...] and prescription treatments. 03/18/2024 Unspecified atherosclerosis of [place] arteries of extremities, bilateral legs (ICD-10 - [...] and prescription treatments. 05/27/2024 Unspecified atherosclerosis of [place] arteries of extremities, bilateral legs (ICD-10 - [...] and pared utilizing a #15 blade 10/21/2024 Tinea unguium (ICD-10 - B35.1) Nails [...] utilizing a #15 blade 10/21/2024 Atherosclerosis of [place] arteries of extremities with intermittent claudication, bilateral legs (ICD-10 - I70.213) 07/29/2024 Atherosclerosis of [place] arteries of extremities with intermittent claudication, bilateral [...] foot (ICD-10 - M79.671) 10/21/2024 Pain in right foot (ICD-10 - M79.671) 10/21/2024 Pain in left foot (ICD-10 - M79.672) 07/29/2024 Pain in left foot (ICD-10 - [...] Treatment Next Appt Details Provider Name:LANA HEIN, 12/30/2024 03:30:00 PM, [address] [place] [address], [id number], Insurance Providers Payer Name Payer Address Payer Phone Subscriber Number Group Number Insured Name Patient Relationship to Insured Coverage Start Date Coverage End Date [facility] [address] [address] [place], [place] [id number] Edil Izquierdo Self - patient is the insured
--- OUTSIDE RECORDS SUMMARY | 2024-11-04 07:45 | XMS_ITS | Encounter Summary ---
Author Organization [facility] Address [address] [place] [address] Phone Care Team Providers Care Net Developer Consultant Name Role Phone Shaan Gallegos MD Primary Care Provider Reason for Referral * Radiology Services (Routine) - Closed Specialty Diagnoses / Procedures Referred By Razia fernández Referred To Contact Radiology Diagnoses Pre-op testing Procedures EKG 12 LEAD Pretty Marrero MD Phone: tel: fax: Referral ID Status Reason Start Date Expiration Date Visits Re quested Visits Authorized [id number] Closed 08/10/2020 1 1 STRIAL MECHANIC Encounter Details Date Type Department Care Team (Late st Contact Info) Description 08/10/2020 [facility] [address] [place] [phone] Pretty Marrero MD [address] [place] [address] Pre-op testing (Primary Dx) Social History Tobacco [...] COVID-19? No / Unsure 08/11/2020 8:34 AM INDUSTRIAL MECHANIC documented as of this encounter Plan of Treatment Not on file documented as of this encounter Results * EKG 12 LEAD (08/15/2020 10:17 AM INDUSTRIAL MECHANIC) Ventricular Rate BPM EXTERNAL EKG Atrial Rate BPM EXTERNAL EKG P-R Interval 226 ms EXTERNAL EKG QRS Duration 100 ms EXTERNAL EKG Q-T Duration 394 ms EXTERNAL EKG QTC CALCULATION 401 ms EXTERNAL EKG P [place] 62 degrees EXTERNAL EKG R [place] 55 degrees EXTERNAL EKG T [place] 31 degrees EXTERNAL EKG 08/15/2020 10:1 7 AM INDUSTRIAL MECHANIC Impressions EXTERNAL EKG - 08/17/2020 12:27 PM INDUSTRIAL MECHANIC Sinus rhythm with 1st degree A-V block Comparison Summary: No serial comparison made Summary: Abnormal ECG Confirmed by Raquel Roberts [id number] on 08/17/2020 12:27:32 PM Narrative Procedure Note Shirley García MD - 08/17/2020 IMPRESSION: Sinus rhythm with 1st degree A-V block Comparison Summary: No serial comparison made Summary: Abnormal ECG Confirmed by Raquel Roberts [id number] on 08/17/2020 12:27:32 PM Pretty Marrero MD IMG ECG ORDERABLES Final Result EXTERNAL EKG * (ABNORMAL) ERYTHROCYTE SEDIMENTATION RATE (ESR) (08/15/2020 10:08 AM INDUSTRIAL MECHANIC) ESR (SED RATE, ERYTHROCYTE SEDIMENTATION RATE) 23(H) <20 mm/h 08/15/2020 12:59 PM INDUSTRIAL MECHANIC [facility] Comment: Patients presenting with increased level of fibrinogen, gamma globulins, or abnormally shaped RBCs could affect the results for the erythrocyte sedimentation rate (ESR). Results should be clinically correlated. Blood Venipuncture / Unknown 08/15/2020 10:08 AM INDUSTRIAL MECHANIC 08/15/2020 12:00 PM INDUSTRIAL MECHANIC Pretty Marrero MD HEMATOLOGY ORDERABLES Fi nal Result Performing Organization Address City/[facility]/ZIP Co de Phone Number [facility] [address] [place] [address] * C-REACTIVE PROTEIN (CRP) QUANT (08/15/2020 10:08 AM INDUSTRIAL MECHANIC) C-REACTIVE PROTEIN 0.39 <0.50 mg/dL 08/15/2020 1:40 PM INDUSTRIAL MECHANIC [facility] Blood Venipuncture / Unknown 08/15/2020 10:08 AM INDUSTRIAL MECHANIC 08/15/2020 11:59 AM INDUSTRIAL MECHANIC Pretty Marrero MD CHEMISTRY ORDERABLES Fin al Result Performing Organization Address [facility] Co de Phone Number [facility] [address] [place] [address] * SARS-COV-2 BY MOLECULAR (08/15/2020 10:08 AM INDUSTRIAL MECHANIC) SARSCOV2 NOT DETECTED (Referen ce Range for this test is Not Detected ) [facility] THERMOFISHER FAST DX 08/16/2020 11:27 AM INDUSTRIAL MECHANIC [facility] Comment:This test was perfor med by a PCR method. Other NASOPHARYNGEAL STRUCTURE / Unknown Non-Phlebotomy Collection / Unknown 08/15/2020 10:08 AM INDUSTRIAL MECHANIC 08/15/2020 1:41 PM INDUSTRIAL MECHANIC Narrative [facility] - 08/16/2020 11:27 AM INDUSTRIAL MECHANIC Authorized Fact Sheets about this test for providers and patients are available at: https://www.fda.gov/medical-devices/udpfinilh-rkngrfblyq-hxnrrae-devices/emergen cy-us e-authorizations Pretty Marrero MD MICROBIOLOGY - GENERAL O RDERABLES Final Result Performing Organization Address City/[facility]/ZIP Co de Phone Number [facility] [address] [place] [address], [place] * (ABNORMAL) URINALYSIS REFLEX IF INDICATED BY ABNORMAL RESULTS (08/15/2020 10:08 AM INDUSTRIAL MECHANIC) Pathologist [facility] [place] SPECIFIC GRAVITY 1.020 1.003 - 1.030 08/15/2020 12:50 PM INDUSTRIAL MECHANIC [facility] URINE PH 6.0 5.0 - 9.0 08/15/2020 12:50 PM INDUSTRIAL MECHANIC [facility] WBC ESTERASE Negative Negative 08/15/2020 12:50 PM INDUSTRIAL MECHANIC [facility] NITRITE Negative Negative 08/15/2020 12:50 PM INDUSTRIAL MECHANIC [facility] PROTEIN, RANDOM URINE 15 mg/dL(A) Negative 08/15/2020 12:50 PM INDUSTRIAL MECHANIC [facility] URINE GLUCOSE, QUAL Negative Negative 08/15/2020 12:50 PM INDUSTRIAL MECHANIC [facility] URINE KETONES Negative Negative 08/15/2020 12:50 PM INDUSTRIAL MECHANIC [facility] UROBILINOGEN Normal Normal mg/dL 08/15/2020 12:50 PM INDUSTRIAL MECHANIC [facility] URINE BILIRUBIN Negative Negative 12:50 PM INDUSTRIAL MECHANIC [facility] URINE BLOOD Negative Negative grabiel/ul 08/15/2020 12:50 PM INDUSTRIAL MECHANIC [facility] URINALYSIS COLOR Yellow 08/15/19 12:50 PM INDUSTRIAL MECHANIC [facility] URINALYSIS CLARITY Clear 08/15/2020 12:50 PM INDUSTRIAL MECHANIC [facility] Urine URINE SPECIMEN COLLECTION, CLEAN CATCH / Unknown Non-Phlebotomy Collection / Unknown 08/15/2020 10:08 AM INDUSTRIAL MECHANIC 08/15/2020 11:57 AM INDUSTRIAL MECHANIC Pretty Marrero MD URINE ORDERABLES Final R esult [facility] [address] [place] [address] * (ABNORMAL) CMP (COMPREHENSIVE METABOLIC PANEL) (08/15/2020 10:08 AM INDUSTRIAL MECHANIC) SODIUM 136 136 - 144 mmol/L 08/15/2020 1:40 PM [facility] POTASSIUM 3.9 3.5 - 5.1 mmol/L 08/15/2020 1:40 PM [facility] CHLORIDE 98(L) 100 - 110 mmol/L 08/15/2020 1:40 PM [facility] CO2, VENOUS 29 22 - 32 mmol/L 08/15/2020 1:40 PM [facility] ANION GAP 12.9 8.0 - 20.0 mmol/L 08/15/2020 1:40 PM [facility] GLUCOSE 198(H) 70 - 99 mg/dL 08/15/2020 1:40 PM [facility] BUN 18 6 - 20 mg/dL 08/15/2020 1:40 PM [facility] CREATININE, BLOOD 0.90 0.80 - 1.30 mg/dL 08/15/2020 1:40 PM [facility] BUN/CREATININE RATIO 20 12 - 20 ratio 08/15/2020 1:40 PM [facility] TOTAL PROTEIN 7.5 6.0 - 8.3 g/dL 08/15/2020 1:40 PM [facility] ALBUMIN 4.0 3.5 - 5.2 g/dL 08/15/2020 1:40 PM [facility] Comment: The colormetric methods used for the determination of Albumin may lead to falsely elevated test results in patients suffering from renal failure or insufficiency due to interference with other proteins. A/G RATIO 1.1 1.0 - 2.0 08/15/2020 1:40 PM [facility] CALCIUM 9.9 8.9 - 10.3 mg/dL 08/15/2020 1:40 PM [facility] T BILI 0.5 <=1.2 mg/dL 08/15/2020 1:40 PM [facility] SGOT (AST) 21 <=40 U/L 08/15/2020 1:40 PM INDUSTRIAL MECHANIC [facility] SGPT (ALT) 26 <=41 U/L 08/15/2020 1:40 PM INDUSTRIAL MECHANIC [facility] ALKALINE PHOSPHATASE 74 40 - 130 U/L 08/15/2020 1:40 PM INDUSTRIAL MECHANIC [facility] GFR, EST. NONAFRICAN >60 >=60 08/15/2020 1:40 PM INDUSTRIAL MECHANIC [facility] GFR, EST. >60 >=60 021 1:40 PM INDUSTRIAL MECHANIC [facility] Comment: Creatinine Clearance is the preferred criteria for selecting drug dose adjustments in renally impaired patients. The GFR is provided as additional pertinent clinical information. GFR is reported in mL/min/1.73 sq m. IS THE PATIENT REQUIRED TO BE FASTING? No 08/15/2020 1:40 PM INDUSTRIAL MECHANIC [facility] Blood Venipuncture / Unknown 08/15/2020 10:08 AM INDUSTRIAL MECHANIC 08/15/2020 11:59 AM INDUSTRIAL MECHANIC us Pretty Marrero MD CHEMISTRY ORDERABLES Fin al Result [facility] [address] [place] [address] documented in this encounter Visit Diagnoses Diagnosis Pre-op testing- Primary Preoperative examination, unspecified Pre-op testing Preoperative examination, unspecified documented in this encounter Care Teams Net Developer Consultant Relationship Specialty Start Date End Date Shaan Gallegos MD [address] [place] [id number] PCP - General Family Medicine 08/11/20 07/13/21 documented as of this encounter
[2024-11-04 09:09] LABS: Anion Gap 11 mmol/L (4-12); Blood Urea Nitrogen 22 mg/dL (9-20); Calcium 9.4 mg/dL (8.4-10.2); Carbon Dioxide 25 mmol/L (22-30); Chloride 102 mmol/L (98-107); Estimated Glomerular Filt Rate > 60; Glucose 181 mg/dL (65-110); Osmolality Calculated 294 mOsm/kg (285-295); Potassium 4.5 mmol/L (3.4-5.0); Sodium 138 mmol/L (137-145)
== END 2024-11-04 07:43 | disposition home or self-care (01) ==
LOC: CHSLAB 07:42
PROVIDERS: PCP Family Medicine; Visit Provider Nurse Practitioner Family
DX: Z79.4 Long term (current) use of insulin (principal); E11.9 Type 2 diabetes mellitus without complications
CPT/HCPCS: 36415; 80048

== ENCOUNTER 2025-02-12 19:37 | Outpatient (CLI) | payer MEDICARE, SELFPAY ==
--- OUTSIDE RECORDS SUMMARY | 2024-12-30 10:30 | XMS_ITS ---
Author Organization [facility] Address [address] [place], [place] [address] Care Team Providers Care Director Of Informatics Name Role Phone PATRICIA DONNELLY Unavailable [phone] Antony Borjas Unavailable Unavailable LANA BRICE Unavailable [phone] Allergies Allergen (clinical drug ingredient) Drug/Non Drug Allergy documented on EMR Reaction Allergy Type Onset Date Status Penicillin Unknown Drug Allergy Active REASON FOR VISIT *General care Medications Medication SIG (Take, Route, Frequency, Duration) Notes Start Date End Date Status Losartan Potassium A ctive dilTIAZem HCl Active Vascepa Active hydroCHLOROthiazide Active Atenolol Active HumuLIN R U-500 (CONCENTRATED) Active Vital Signs Height 76 in 12/30/2024 Weight 353 lbs 12/30/2024 BMI 42.96 kg/m2 12/30/2024 Height-cm 193.04 cm 12/30/2024 Weight-kg 160.12 kg 12/30/2024 Encounters Encounter Location Date Provider Diagnosis [facility] [address] [place], [place] [id number] 12/30/2024 LANA BRICE Tinea unguium B35.1 ; Acquired keratosis [keratoderma] palmaris et plantaris L85.1 ; Atherosclerosis of [place] arteries of extremities with intermittent claudication, bilateral legs I70.213 ; Pain in right foot M79.671 and Pain in left foot M79.672 Assessments Encounter Date Diagnosis (ICD Code) Assessment Notes Treatment Notes Treatment Clinical Notes Section Notes 12/30/2024 Tinea unguium (ICD-10 - B35.1) Nails 1-5 Bilateral were debrided extensively with nail nippers and emery board, reducing length and girth to pink healthy tissue with any subungual debris and necrotic tissue removed 12/30/2024 Acquired keratosis [keratoderma] palmaris et plantaris (ICD-10 - L85.1) A total of 2 corns or calluses, as described in the note above, were cut and pared utilizing a #15 blade 12/30/2024 Atherosclerosis of [place] arteries of extremities with intermittent claudication, bilateral legs (ICD-10 - I70.213) Patient educated on risks and aggravating factors of PVD, including conservative treatment options such as a diet and exercise regimen to aid in slowing progression of vascular disease. Check and protect LE bilateral daily. Call if any changes or concerns. 12/30/2024 Pain in right foot (ICD-10 - M79.671) 12/30/2024 Pain in left foot (ICD-10 - M79.672) [...] cut and pared utilizing a #15 blade Atherosclerosis of [place] ar teries of extremities with intermittent claudication, bilateral legs Patient educated on risks and aggravatin g factors of PVD, including conservative treatment options such as a diet and exercise regimen to aid in slowing progression of vascular disease. Check and protect LE bilateral daily. Call if any changes or concerns. Next Appt Details Follow Up: 10 - 12 weeks, Re ason: At-Risk Foot care, sooner if problems develop. Provider Name:LANA HEIN, 03/03/2025 02:30:00 PM, [address] [place] [address], [id number], Progress Notes * Christopher IZQUIERDO:[birth year] (59 yo M)Acc No.[id number]:12/30/2024 Patient: Edil VASQUEZ Provider: Gia BRICE :1965 A ge:59 Y S ex:Male Date:12/30/2024 Address:Formerly named [facility] [place] [id number] Subjective: * Chief Complaints: * 1 . *General care. * HPI: H PI: General care P atient presents to the office for diabetic foot care. Patient states that their nails are thickened, elongated and painful. Patient states that it is aggravated by shoe gear. Onset is gradual., Patient denies taking blood thinners., Date last seen by Dr. Borjas was July 2024. I nitials LB. * ROS: G eneral / Constitutional: Patient [...] confusion, difficulty speaking, dizziness. * Medical History: M edical History Verified. * Family History: F ather: neuropathy, Diabetic, [...] - L85.1 3 . A therosclerosis of [place] arteries of extremities with intermittent claudication, bilateral legs - I70.213 4 . P ain in right foot - M79.671 5 . P ain in left foot - M79.672 Plan: * Treatment: 2. A cquired keratosis [keratoderma] palmaris et plantaris Notes: A total of 2 corns or calluses, as described in the note above, were cut and pared utilizing a #15 blade 3. A therosclerosis of [place] arteries of extremities with intermittent claudication, bilateral legs Notes: Patient educated on risks and aggravating factors of PVD, including conservative treatment options such as a diet and exercise regimen to aid in slowing progression of vascular disease. Check and protect LE bilateral daily. Call if any changes or concerns. * Immunizations: Immunization record has been reviewed and updated. * Follow Up: 1 0 - 12 weeks (Reason: At-Risk Foot care, sooner if problems develop.) * Billing Information: * Visit Code: 45767 Office Visit, Est Pt., Level 3. * Procedure Codes: * Electronic signature of ANGELO BRICE DPM on 02/12/2025 at 07:41 PM CDT Sign off status: Pending * Provider: Gia BRICE Date: 0 12/30/2024 Generated for Casandra kelly/Apollo/Nasimaitting on: 0 02/12/2025 07:41 PM CDT History and Physical Notes * HPI [...] Date last seen by Dr. Borjas was July 2024. Initials LB Examination Category Sub-Category Detail Notes Category Not [...]
--- OUTSIDE RECORDS SUMMARY | 2025-02-12 19:42 | XMS_ITS | Encounter Summary ---
Author Organization [facility] Address [address] [place] [address] Phone Care Team Providers Care Assurance Senior Manager Insurance Name Role Phone Shaan Gallegos MD Primary Care Provider Reason for Referral * Radiology Services (Routine) - Closed Specialty Diagnoses / Procedures Referred By Razia fernández Referred To Contact Radiology Diagnoses Pre-op testing Procedures EKG 12 LEAD Pretty Marrero MD Phone: tel: fax: Referral ID Status Reason Start Date Expiration Date Visits Re quested Visits Authorized [id number] Closed 08/10/2020 1 1 BLE LOCATER Encounter Details Date Type Department Care Team (Late st Contact Info) Description 08/10/2020 Transcribe [facility] [address] [place] [id number] Pretty Marrero MD [address] [place] [address] Pre-op testing (Primary Dx) Social History Tobacco [...] COVID-19? No / Unsure 08/11/2020 8:34 AM TROUBLE LOCATER documented as of this encounter Plan of Treatment Not on file documented as of this encounter Results * EKG 12 LEAD (08/15/2020 10:17 AM TROUBLE LOCATER) Ventricular Rate BPM EXTERNAL EKG Atrial Rate BPM EXTERNAL EKG P-R Interval 226 ms EXTERNAL EKG QRS Duration 100 ms EXTERNAL EKG Q-T Duration 394 ms EXTERNAL EKG QTC CALCULATION 401 ms EXTERNAL EKG P Rifle 62 degrees EXTERNAL EKG R Rifle 55 degrees EXTERNAL EKG T Rifle 31 degrees EXTERNAL EKG 08/15/2020 10:1 7 AM TROUBLE LOCATER Impressions EXTERNAL EKG - 08/17/2020 12:27 PM TROUBLE LOCATER Sinus rhythm with 1st degree A-V block Comparison Summary: No serial comparison made Summary: Abnormal ECG Confirmed by Raquel Roberts [id number] on 08/17/2020 12:27:32 PM Narrative Procedure Note Shirley García MD - 08/17/2020 IMPRESSION: Sinus rhythm with 1st degree A-V block Comparison Summary: No serial comparison made Summary: Abnormal ECG Confirmed by Raquel Roberts [id number] on 08/17/2020 12:27:32 PM Pretty Marrero MD IMG ECG ORDERABLES Final Result EXTERNAL EKG * (ABNORMAL) ERYTHROCYTE SEDIMENTATION RATE (ESR) (08/15/2020 10:08 AM TROUBLE LOCATER) ESR (SED RATE, ERYTHROCYTE SEDIMENTATION RATE) 23(H) <20 mm/h 08/15/2020 12:59 PM TROUBLE LOCATER [facility] Comment: Patients presenting with increased level of fibrinogen, gamma globulins, or abnormally shaped RBCs could affect the results for the erythrocyte sedimentation rate (ESR). Results should be clinically correlated. Blood Venipuncture / Unknown 08/15/2020 10:08 AM TROUBLE LOCATER 08/15/2020 12:00 PM TROUBLE LOCATER Pretty Marrero MD HEMATOLOGY ORDERABLES Fi nal Result Performing Organization Address City/[facility]/ZIP Co de Phone Number [facility] [address] [place] [address] * C-REACTIVE PROTEIN (CRP) QUANT (08/15/2020 10:08 AM TROUBLE LOCATER) C-REACTIVE PROTEIN 0.39 <0.50 mg/dL 08/15/2020 1:40 PM TROUBLE LOCATER [facility] Blood Venipuncture / Unknown 08/15/2020 10:08 AM TROUBLE LOCATER 08/15/2020 11:59 AM TROUBLE LOCATER Pretty Marrero MD CHEMISTRY ORDERABLES Fin al Result Performing Organization Address [facility]/[place] Co de Phone Number [facility] [address] [place] [address] * SARS-COV-2 BY MOLECULAR (08/15/2020 10:08 AM TROUBLE LOCATER) SARSCOV2 NOT DETECTED (Referen ce Range for this test is Not Detected ) [facility] THERMOFISHER FAST DX 08/16/2020 11:27 AM TROUBLE LOCATER [facility] Comment:This test was perfor med by a PCR method. Other NASOPHARYNGEAL STRUCTURE / Unknown Non-Phlebotomy Collection / Unknown 08/15/2020 10:08 AM TROUBLE LOCATER 08/15/2020 1:41 PM TROUBLE LOCATER Narrative [facility] - 08/16/2020 11:27 AM TROUBLE LOCATER Authorized Fact Sheets about this test for providers and patients are available at: https://www.fda.gov/medical-devices/zsddchima-ooowsfbnhj-iizfpwv-devices/emergen cy-us e-authorizations Pretty Marrero MD MICROBIOLOGY - GENERAL O RDERABLES Final Result Performing Organization Address City/[facility]/ZIP Co de Phone Number [facility] [address] [place] [address], [place] * (ABNORMAL) URINALYSIS REFLEX IF INDICATED BY ABNORMAL RESULTS (08/15/2020 10:08 AM TROUBLE LOCATER) Pathologist [facility] SPECIFIC GRAVITY 1.020 1.003 - 1.030 08/15/2020 12:50 PM TROUBLE LOCATER [facility] URINE PH 6.0 5.0 - 9.0 08/15/2020 12:50 PM TROUBLE LOCATER [facility] WBC ESTERASE Negative Negative 08/15/2020 12:50 PM TROUBLE LOCATER [facility] NITRITE Negative Negative 08/15/2020 12:50 PM TROUBLE LOCATER [facility] PROTEIN, RANDOM URINE 15 mg/dL(A) Negative 08/15/2020 12:50 PM TROUBLE LOCATER [facility] URINE GLUCOSE, QUAL Negative Negative 08/15/2020 12:50 PM TROUBLE LOCATER [facility] URINE KETONES Negative Negative 08/15/2020 12:50 PM TROUBLE LOCATER [facility] UROBILINOGEN Normal Normal mg/dL 08/15/2020 12:50 PM TROUBLE LOCATER [facility] URINE BILIRUBIN Negative Negative 12:50 PM TROUBLE LOCATER [facility] URINE BLOOD Negative Negative grabiel/ul 08/15/2020 12:50 PM TROUBLE LOCATER [facility] URINALYSIS COLOR Yellow 08/15/19 12:50 PM TROUBLE LOCATER [facility] URINALYSIS CLARITY Clear 08/15/2020 12:50 PM TROUBLE LOCATER [facility] Urine URINE SPECIMEN COLLECTION, CLEAN CATCH / Unknown Non-Phlebotomy Collection / Unknown 08/15/2020 10:08 AM TROUBLE LOCATER 08/15/2020 11:57 AM TROUBLE LOCATER Pretty Marrero MD URINE ORDERABLES Final R esult [facility] [address] [place] [address] * (ABNORMAL) CMP (COMPREHENSIVE METABOLIC PANEL) (08/15/2020 10:08 AM TROUBLE LOCATER) SODIUM 136 136 - 144 mmol/L 08/15/2020 1:40 PM [facility] POTASSIUM 3.9 3.5 - 5.1 mmol/L 08/15/2020 1:40 PM [facility] CHLORIDE 98(L) 100 - 110 mmol/L 08/15/2020 1:40 PM [facility] CO2, VENOUS 29 22 - 32 mmol/L 08/15/2020 1:40 PM [facility] ANION GAP 12.9 8.0 - 20.0 mmol/L 08/15/2020 1:40 PM [facility] GLUCOSE 198(H) 70 - 99 mg/dL 08/15/2020 1:40 PM [facility] BUN 18 6 - 20 mg/dL 08/15/2020 1:40 PM [facility] CREATININE, BLOOD 0.90 0.80 - 1.30 mg/dL 08/15/2020 1:40 PM [facility] BUN/CREATININE RATIO 20 12 - 20 ratio 08/15/2020 1:40 PM [facility] TOTAL PROTEIN 7.5 6.0 - 8.3 g/dL 08/15/2020 1:40 PM [facility] ALBUMIN 4.0 3.5 - 5.2 g/dL 08/15/2020 1:40 PM [facility] Comment: The colormetric methods used for the determination of Albumin may lead to falsely elevated test results in patients suffering from renal failure or insufficiency due to interference with other proteins. A/G RATIO 1.1 1.0 - 2.0 08/15/2020 1:40 PM [facility] CALCIUM 9.9 8.9 - 10.3 mg/dL 08/15/2020 1:40 PM [facility] T BILI 0.5 <=1.2 mg/dL 08/15/2020 1:40 PM [facility] SGOT (AST) 21 <=40 U/L 08/15/2020 1:40 PM TROUBLE LOCATER [facility] SGPT (ALT) 26 <=41 U/L 08/15/2020 1:40 PM TROUBLE LOCATER [facility] ALKALINE PHOSPHATASE 74 40 - 130 U/L 08/15/2020 1:40 PM TROUBLE LOCATER [facility] GFR, EST. NONAFRICAN >60 >=60 08/15/2020 1:40 PM TROUBLE LOCATER [facility] GFR, EST. >60 >=60 021 1:40 PM TROUBLE LOCATER [facility] Comment: Creatinine Clearance is the preferred criteria for selecting drug dose adjustments in renally impaired patients. The GFR is provided as additional pertinent clinical information. GFR is reported in mL/min/1.73 sq m. IS THE PATIENT REQUIRED TO BE FASTING? No 08/15/2020 1:40 PM TROUBLE LOCATER [facility] Blood Venipuncture / Unknown 08/15/2020 10:08 AM TROUBLE LOCATER 08/15/2020 11:59 AM TROUBLE LOCATER us Pretty Marrero MD CHEMISTRY ORDERABLES Fin al Result [facility] [address] [place] [address] documented in this encounter Visit Diagnoses Diagnosis Pre-op testing- Primary Preoperative examination, unspecified Pre-op testing Preoperative examination, unspecified documented in this encounter Care Teams Assurance Senior Manager Insurance Relationship Specialty Start Date End Date Shaan Gallegos MD [address] [place] [id number] PCP - General Family Medicine 08/11/20 07/13/21 documented as of this encounter
--- OUTSIDE RECORDS SUMMARY | 2025-02-12 19:42 | XMS_ITS | Clinical Summary ---
Author Organization [facility] Address [address] [place] [address] Phone Care Team Providers Care Technical Sales Advisor Name Role Phone Unavailable Primary Care Provider [...] Comments Blood Pressure 94/51 08/18/2020 1:45 PM CALL CENTER RN Pulse 66 08/18/2020 1:45 PM CALL CENTER RN Temperature 36 C (96.8 F) 08/18/2020 1:45 PM CALL CENTER RN Respiratory Rate 16 08/18/2020 1:45 PM CALL CENTER RN Oxygen Saturation 92% 08/18/2020 1:45 PM CALL CENTER RN Inhaled Oxygen Concentration - - Weight 158.9 kg (350 lb 4.8 oz) 08/18/2020 7:59 AM CALL CENTER RN Height 193 cm (6' 4) 08/18/2020 7:59 AM CALL CENTER RN Body Mass Index 42.64 08/18/2020 7:59 AM CALL CENTER RN Plan of Treatment Health Maintenance Due Date Last Done Comments Hepatitis C Virus (HCV) Screening 1965 TdaP Immunization 1965 Cologuard 2009 Colonoscopy 2009 Colorectal Cancer Screening 2009 Immunochemical Fecal Occult Blood 2009 Pneumococcal Immunization (5 0+ years) (1 of 1 - PCV) 2014 Zoster Immunization (1 of 2) 2014 SARS-COV-2 Immunization (4 - season) 2024 05/21/2021, 10/23/2020, 10/02/2020 Influenza Immunization (#1) 2025 04/29/2020 Respiratory Syncytial Virus (RSV) Immunization (Adult) (1 - 1-dose 75+ series) 10/02/2039 Hepatitis B Immunization Aged Out No longer eligible based on patient's age to complete this topic Human Papillomavirus (HPV) Immunization Aged Out No longer eligible b ased on patient's age to complete this topic Meningococcal Immunization (ACWY) Aged Out No longer eligible b ased on patient's age to complete this topic Rotavirus Immunization Aged Out No lo nger eligible based on patient's age to complete this topic Medical Devices Implanted Type Area Senior Bi Developer Device Identifier Shelf Expiration Date Model / Serial / Lot Lead Kit Implanted:Qty: 1 on 08/18/2020 by Pretty Marrreo MD at [facility] N/A: Spine Thoracic [employer] 07/11/2024 [id number] / [id number] / [id number] Lead Kit Implanted:Qty: 1 on 08/18/2020 by [facility] at [facility] N/A: Spine Thoracic [employer] 07/17/2024 [id number] / [id number] / [id number] Intellis Adaptive Stim Implanted:Qty: 1 on 08/18/2020 by Pretty Marrero MD at [facility] N/A: Back [employer] 10/04/2020 [id number] / [id number] / [id number] Insurance on file
--- OUTSIDE RECORDS SUMMARY | 2025-02-12 19:42 | XMS_ITS | Patient Health Record ---
Author Organization [facility] Address [address] [place], [place] [id number] Care Team Providers Care Social Sciences Chair Name Role Phone PATRICIA DONNELLY Unavailable [phone] Antony Borjas Unavailable Unavailable YANA CHILDS Unavailable [phone] LANA BRICE Unavailable [phone] Allergies Allergen (clinical drug ingredient) Drug/Non Drug Allergy documented on EMR Reaction Allergy Type Onset Date Status Penicillin Unknown Drug Allergy Active Reason For Referral No Information Medications Medication SIG (Take, Route, Frequency, Duration) Notes Start Date End Date Status Losartan Potassium A ctive dilTIAZem HCl Active HumuLIN R U-500 (CONCENTRATED) Active Vascepa Active hydroCHLOROthiazide Active Atenolol Active Vital Signs Height-cm 193.04 cm 12/30/2024 Weight-kg 160.12 kg 12/30/2024 Height 76 in 12/30/2024 Weight 353 lbs 12/30/2024 BMI 42.96 kg/m2 12/30/2024 Encounters Encounter Location Date Provider Diagnosis [facility] [address] [place], [place] [id number] 12/30/2024 LANA BRICE Tinea unguium B35.1 ; Acquired keratosis [keratoderma] palmaris et plantaris L85.1 ; Atherosclerosis of [place] arteries of extremities with intermittent claudication, bilateral legs I70.213 ; Pain in right foot M79.671 and Pain in left foot M79.[address] [place] [id number] 03/18/2024 YANA CHILDS Unspecified atherosclerosis of [place] arteries of extremities, bilateral legs I70.203 ; Tinea unguium B35.1 ; Type 2 diabetes mellitus with diabetic peripheral angiopathy without gangrene E11.51 ; Acquired keratosis [keratoderma] palmaris et plantaris L85.1 ; Pain in right toe(s) M79.674 ; Other hammer toe(s) (acquired), right foot M20.41 ; Other hammer toe(s) (acquired), left foot M20.42 and Pain in left toe(s) M79.[address] [id number] 05/27/2024 YANA CHILDS Unspecified atherosclerosis of [place] arteries of extremities, bilateral legs I70.203 ; Tinea unguium B35.1 ; Type 2 diabetes mellitus with diabetic peripheral angiopathy without gangrene E11.51 ; Acquired keratosis [keratoderma] palmaris et plantaris L85.1 ; Pain in right toe(s) M79.674 ; Other hammer toe(s) (acquired), right foot M20.41 ; Other hammer toe(s) (acquired), left foot M20.42 and Pain in left toe(s) M79.[address] [id number] 07/29/2024 PATRICIA SNOOK Tinea unguium B35.1 ; Acquired keratosis [keratoderma] palmaris et plantaris L85.1 ; Atherosclerosis of [place] arteries of extremities with intermittent claudication, bilateral legs I70.213 ; Pain in right foot M79.671 and Pain in left foot M79.[address] [id number] 10/21/2024 PATRICIA SNOOK Tinea unguium B35.1 ; Acquired keratosis [keratoderma] palmaris et plantaris L85.1 ; Atherosclerosis of [place] arteries of extremities with intermittent claudication, bilateral legs I70.213 ; Pain in right foot M79.671 and Pain in left foot M79.672 Assessments Encounter Date Diagnosis (ICD Code) Assessment Notes Treatment Notes Treatment Clinical Notes Section Notes 03/18/2024 Unspecified atherosclerosis of [place] arteries of extremities, bilateral legs (ICD-10 - [...] and prescription treatments. 05/27/2024 Unspecified atherosclerosis of [place] arteries of extremities, bilateral legs (ICD-10 - [...] and pared utilizing a #15 blade 12/30/2024 Tinea unguium (ICD-10 - B35.1) Nails [...] utilizing a #15 blade 12/30/2024 Atherosclerosis of [place] arteries of extremities with intermittent claudication, bilateral legs (ICD-10 - I70.213) Patient educated on risks and aggravating factors of PVD, including conservative treatment options such as a diet and exercise regimen to aid in slowing progression of vascular disease. Check and protect LE bilateral daily. Call if any changes or concerns. 10/21/2024 Atherosclerosis of [place] arteries of extremities with intermittent claudication, bilateral legs (ICD-10 - I70.213) 07/29/2024 Atherosclerosis of [place] arteries of extremities with intermittent claudication, bilateral [...] foot (ICD-10 - M79.671) 12/30/2024 Pain in right foot (ICD-10 - M79.671) 12/30/2024 Pain in left foot (ICD-10 - M79.672) 10/21/2024 Pain in left foot (ICD-10 - [...] Treatment Next Appt Details Provider Name:LANA HEIN, 03/03/2025 02:30:00 PM, [address] [place] [address], [id number], Insurance Providers Payer Name Payer Address Payer Phone Subscriber Number Group Number Insured Name Patient Relationship to Insured Coverage Start Date Coverage End Date [facility] [address] [address] [place], [place] [id number] Edil Izquierdo Self - patient is the insured
--- NOTE | 2025-03-14 07:51 | P.SLEEP_ITS ---
Sleep Study Date of Study: 02/12/25 Ordering Provider: KATELYN Fraga Interpreting Physician: Sahara Wolfe MD Sleep Study Type: Split Polysomnogram Height: 1.93 m Weight: 154.221 kg Body Mass Index: 41.3 Neck Circumference (inches): 20 [place]: 4 Reason for Sleep Study Non-restorative sleep, waking during the night Sleep History Edil Izquierdo is a 59-year-old man with hypertension, diabetes, arthritis, and acid reflux. He reports poor quality sleep, waking every 1-2 hours throughout the night. He never awakens from sleep feeling short of breath. He rarely wakes at night with heartburn, belching or coughing.?He occasionally snores loudly enough that others complain. He never has trouble sleeping when he has a cold. He never wakes up gasping for breath during the night. He never has breathing p roblems at night observed by others. He never sweats excessively at night. He never notices his heart pounding or beating irregularly during the night. He rarely falls asleep during the day. He never falls asleep involuntarily, never falls asleep while driving. He never experiences loss of muscle tone with strong emotion. He never has daytime difficulty at work due to excessive sleepiness. He never feels paralyzed on waking or falling asleep. He never experiences vivid dreams upon waking or falling asleep. He never feels afraid of going to sleep. He never has nightmares. He rarely recalls his dreams. He occasionally has thoughts racing through his mind. He never feels sad or depressed. He never feels anxiety. He rarely notices parts of his body jerk. He rarely kicks during the night. He rarely feels crawling or aching feelings in his legs. He rarely feels leg pain at night. He never has morning jaw pain, never grinds his teeth at night. He frequently feels bothered by pain during the day, occasionally is awakened by pain during the night. He always wakes up feeling stiff in the morning, and he occasionally wakes feeling sore or achy. He constantly awakens with pain in his neck, spine, or joints. Normal bedtime is between 9:00 p.m. and 10:00 p.m. not taking too long to fall asleep, waking after a few hours times at night, often to go to the bathroom as well as hip pain. While awake, he may watch TV or look at his phone to play a game. Wake time is between 6:00 a.m. and 7:00 a.m. He estimates getting between 3-4 hours of sleep per night. He does not take naps, and a short nap lasting 10- 15 minutes would not be refreshing. Habits:??Tobacco:former smoker, quit 25 years ago Caffeine: 1 gallon of iced tea daily Alcohol: one drink per week Recreational substances: none [facility] Past Medical History Medical History Arthritis of right hip SOB (shortness of breath) on exertion Arthritis of left hip Arthritis Perineal abscess Dyslipidemia Proteinuria Cough Exposure to COVID-19 virus BMI greater than 40 Obesity, Class III, BMI 40-49.9 (morbid obesity) Heel spur Surgically removed History of staph infection Osteoarthritis Chronic back pain Radiculopathy Lumbar region HTN (hypertension) Type 2 diabetes mellitus Surgical History Surgical History H/O foot surgery Status post insertion of spinal cord stimulator History of carpal tunnel surgery of left wrist History of carpal tunnel surgery Right hand Family History Family History Other Diabetes mellitus Family history of Alzheimer's disease Family history of arthritis Hypertension Malignant neoplasm of prostate Social History Social History (Updated 03/14/25 @ 08:10 by Sahara Wolfe MD) Smoking packs per day: 3 Smoking cigarettes per day: 60.0 Years smoked: 10 Smoking pack-years: 30.00 Smoking status: Former smoker Tobacco type: cigarettes Smoking end date: 06/23/99 Alcohol intake: current Drinks per week: 6 Alcohol use details: socially Substance use: never Do You Feel Safe in your Home?: Yes Lack of Transportation: No Lack of Food: Never True Current Housing: I Have Housing Concerned About Future Housing: No Difficulty Paying Gas/Electric Bills: No Difficulty Paying for Meds: No Currently Unemployed: Decline to Answer Education: High School Diploma/GED Difficulty w/ Childcare or Family Care: No Living arrangements: with family Occupation/Education: retired Gender identity (if verbalized by the patient): Male Medications Home Medications ?Medication ?Instructions ?Recorded ?Confirmed ?Type hydrocodone 5 mg-acetaminophen 325 1 tablet PO Q8H PRN 09/20/20 01/14/25 History mg tablet glucagon 3 mg/actuation nasal 3 mg intranasal ONCE PRN 09/17/22 01/14/25 Rx spray (Baqsimi) hypoglycemia #1 ea glucose 4 gram chewable tablet 16 g (4 x 4 gram) PO Q1 5M PRN 11/07/22 01/14/25 Rx (Dex4 Glucose) hypoglycemia #60 tabs cholecalciferol (vitamin D3) 25 25 mcg PO DAILY 01/14/25 History mcg (1,000 unit) tablet diclofenac sodium 50 mg 50 mg PO TID PRN pain #60 ta bs 10/09/23 01/14/25 Rx tablet,delayed release rosuvastatin 20 mg tablet See Rx Instructions .Route 1 01/14/25 Rx .COMPLEX #90 tabs blood-glucose sensor (FreeStyle #6 ea 04/14/2401/14/ 5 Rx Sriram 3 Sensor device) tirzepatide 5 mg/0.5 mL 5 mg (0.5 mL) subcut WEEKLY #6 mL 08/05/24 01/14/25 Rx subcutaneous pen injector (Mounjaro) finerenone 10 mg tablet (Kerendia) 10 mg PO DAILY #90 tabs 10/18/24 01/14/25 Rx dapagliflozin propanediol 10 mg See Rx Instructions .R oute 11/02/24 01/14/25 Rx tablet (Farxiga) .COMPLEX #90 tabs icosapent ethyl 1 gram capsule See Rx Instructions .Ro oliverio 11/02/24 01/14/25 Rx (Vascepa) .COMPLEX #360 caps pen needle, diabetic 32 gauge x #300 ea 11/25/2401/14 Rx (TRUEplus Pen Needle) diltiazem HCl 240 mg See Rx Instructions .Route 0 12/16/24 01/14/25 Rx capsule,extended release 24 hr .COMPLEX #90 caps atenolol 50 mg tablet See Rx Instructions .Route 0 12/21/24 01/14/25 Rx .COMPLEX #90 tabs hydrochlorothiazide 25 mg tablet See Rx Instructions . Route 12/21/24 01/14/25 Rx .COMPLEX #90 tabs duloxetine 60 mg capsule,delayed 60 mg PO DAILY #90 ca ps 01/06/25 01/14/25 Rx release insulin regular hum U-500 conc 500 340 unit (0.68 mL) subcut DAILY 01/17/25 Rx unit/mL(3 mL) subcut pen (Humulin #66 mL R U-500 (Conc) Insulin Kwikpen) losartan 100 mg tablet 100 mg PO DAILY #90 tabs 11/14 Rx Sleep Procedure A split night polysomnogram using the Minube multi-channel system recorded the standard physiologic parameters including EEG, EOG, submentalis EMG, anterior tibialis EMG, EKG, body position, nasal and oral airflow using nasal pressure sensor and thermistor. Respiratory parameters of chest and abdominal movements were recorded with Respiratory Inductance Plethysmography belts. Oxygen saturation was recorded by pulse oximetry. Video monitoring was also performed. Sleep stages, periodic limb movements, and EEG arousals were scored in 30 second epochs according to the criteria of the AASM Scoring Manual. The Apnea-Hypopnea Index was calculated using CMS guidelines for definition of hypopnea while scoring respiratory events. He used no sleep aid at the start of the study. He had 2 bathroom breaks, and switched to the recliner around 5:18 a.m., had consolidated REM after this. After the baseline portion the patient met criteria for a titration with an AHI of 73.9 and desaturation to 70%. He used a a medium ResMed AirFit N30I nasal mask, then switched to a medium ResMed AirFit F30I fullface mask for the rest of the night; initial pressure was 5 cm titrated to a maximum of CPAP 17 cm. At 17 cm, he spent 15 minutes in bed, 0.5 minutes awake, no time in non-REM, and 14.5 minutes in REM, sleep efficiency was 98.7%, residual apnea hypopnea index is 0, lowest saturation is 94%. He had supine REM in the recliner. Another good pressure is CPAP 16 cm. He had REM on CPAP 14, 15, 16, and 17 cm, with residual AHI ranging from 0 to 21. The AHI appeared high due to the short amount of time at each pressure, but any one of those pressures could work. I am recommending CPAP 17 cm as this pressure has the lowest residual AHI. Sleep Architecture During the diagnostic portion of the study, the total recording time was 234.9 minutes. The total sleep time was 127.5 minutes. Sleep latency was 12.4 minutes. REM latency was - minutes. Sleep Efficiency was 54.3%. The patient had 37 awakenings for an awakening index of 17.4. Wake after sleep onset time was 95.0 minutes. The patient spent 65.0 minutes, 51.0% of total sleep time in Stage N1. The patient spent 62.5 minutes, 49.0% in Stage N2. The patient spent no sleep time in Stage N3 or Stage REM sleep. At 02:11:07 AM the patient was placed on PAP treatment and was titrated at pressures ranging from 5 cm to 17 cm, see above. During the treatment portion of the study, the total recording time was 277.7 minutes. The total sleep time was 202.0 minutes. Sleep latency was 15.0 minutes. REM latency was 199.5 minutes. Sleep Efficiency was 72.7%. Wake after Sleep Onset time was 60.5 minutes. The patient spent 49.5 minutes, 24.5% of total sleep time in Stage N1. The patient spent 83.0 minutes, 41.1% in Stage N2. The patient spent 9.0 minutes, 4.5% in Stage N3. The patient spent 60.5 minutes, 30.0% in Stage REM. Respiratory Analysis During the diagnostic portion of the study, the patient had 10 hypopneas, 64 obstructive apneas, 78 mixed apneas, and 5 central apneas for an overall Apnea Hypopnea Index of 73.9 events per hour. The REM Apnea Hypopnea Index was 0 as he had no REM. The NREM Apnea Hypopnea Index was 73.9. The patient had a Central Apnea Hypopnea Index of 2.4. There were no Respiratory Effort Related Arousals. The Respiratory Disturbance Index is 73.9 events per hour. There were Neptali- Henriquez Respirations throughout the baseline. During the treatment portion of the study, the patient had 45 hypopneas, 42 o bstructive apneas, 20 mixed apneas, and 3 central apneas for an overall Apnea Hypopnea Index of 32.7 events per hour. The REM Apnea Hypopnea Index was 11.9. The NREM Apnea Hypopnea Index was 41.6. The patient had a Central Apnea Hypopnea Index of 0.9. There were no Respiratory Effort Related Arousals. The Respiratory Disturbance Index is 33.9 events per hour. There was Neptali-Henriquez Respirations which resolved after CPAP 13 cm and higher pressures. Arousals During the diagnostic portion of the study, there were a total of 141 arousals for an arousal index of 66.4. There were 100 respiratory arousals for an index of 47.1. There were no periodic limb movement arousal. There were no isolated limb movement arousals. There were 41 spontaneous arousals for an index of 19.3. During the treatment portion of the study, there were a total of 91 arousals for an index of 27.0. There were 48 respiratory arousals for an index of 14.3. There was 1 periodic limb movement arousal for an index of 0.3. There was 1 isolated limb movement arousal for an index of 0.3. There were 41 spontaneous arousals for an index of 12.2. Periodic Limb Movements During the diagnostic portion of the study, the patient had 15 isolated limb movements with an index of 7.1. The patient had no periodic limb movements. The patient had a total of 15 limb movements with a total limb movement index of 7.1. During the treatment portion of the study, the patient had 18 isolated limb movements with an index of 5.3. The patient had 151 periodic limb movements with an index of 44.9. The patient had a total of 169 limb movements with a total limb movement index of 50.2. Oximetry Data During the diagnostic portion of the study, the patient had an average oxygen saturation of 91% in wake with a minimum oxygen saturation of73% and a maximum oxygen saturation of 98%. The patient had an average oxygen saturation of 89.8% in sleep with a minimum oxygen saturation of 70% and a maximum oxygen saturation of 98%. The patient had 137 oxygen desaturations resulting in an Oxygen Desaturation Index of 64.9. The patient spent 65.3 minutes, 29% of total sleep time with an oxygen saturation less than 88%. During the treatment portion of the study, the patient had an average oxygen saturation of 93.3% in wake with a minimum oxygen saturation of 75% and a maximum oxygen saturation of 99%. The patient had an average oxygen saturation of 92.9% in sleep with a minimum oxygen saturation of 72% and a maximum oxygen saturation of 99%. The patient had 114 oxygen desaturations resulting in an Oxygen Desaturation Index of 33.9. The patient spent 25.4 minutes, 9.5% of total sleep time with an oxygen saturation less than 88%. Snoring Profile During the diagnostic portion, snoring was loud, and at the optimal pressure, sn oring was eliminated. Cardiac Profile During the diagnostic portion of the study, the EKG showed atrial fibrillation, average pulse rate was 48.3 bpm, minimum pulse rate was 33 bpm and the maximum pulse rate was 72 bpm. No arrhythmias noted. During the treatment portion of the study, the EKG showed atrial fibrillation, average pulse rate was 54.4 bpm. minimum pulse rate was 36 bpm, an the maximum pulse rate was 80 bpm. No arrhythmias noted. EEG Profile Unremarkable, no evidence of seizures. Assessment and Plan Assessment and Plan (1) Obstructive sleep apnea: Code(s): G47.33 - Obstructive sleep apnea (adult) (pediatric) Status: Acute Assessment and Plan: This split night study on 02/12/2025 shows severe obstructive sleep apnea with an apnea hypopnea index of 73.9 events per hour, central apnea hypopnea index of 2.4, desaturation to 70% with loud snoring and Neptali-Henriquez breathing throughout the study which resolved on CPAP 17 cm using a medium ResMed AirFit F30I fullface mask and and heated humidity. At 17 cm, he spent 15 minutes in bed, 0.5 minutes awake, no time in non-REM, and 14.5 minutes in REM, sleep efficiency was 98.7%, residual apnea hypopnea index is 0, lowest saturation is 94%. He had supine REM in the recliner. The patient should be prescribed this ResMed equipment as well as tubing, filters and reservoir. This should be used with all episodes of sleep. Compliance should be reviewed within 31-90 days of starting therapy for usage greater than 4 hours per night greater than 70% of the nights. The patient should be asked about symptoms such as excessive daytime sleepiness, quality of sleep, decreased nocturia, increased mental functioning such as memory, mood, and concentration. He slept in a recliner for the last hour of the night, and had a solid REM episode while in the recliner. Sleeping in this position, he partially treated his obstruction, and if he has a recliner at home, using it may help him tolerate CPPA at 17 cm. This pressure may not be sufficient to maintain airway patency supine, in a bed. He may require BiPAP to keep his airway open is he sleeps supine. BMI is 41. Weight management is advised. Clinical data suggests that weight loss of 10% can reduce the severity of respiratory events and snoring and i mprove AHI by as much as 25%. He had Neptali Henriquez breathing throughout the baseline portion without significant central apneas. This resolved when he reached about 13 cm of PAP. He needs to have an echo to see if he has decreased LV function contributing to this finding. He also had atrial fibrillation throughout the night. This is not listed as a co-morbidity. Consider cardiology evaluation if clinically indicated. (2) Neptali-Henriquez respiration: Code(s): R06.3 - Periodic breathing Status: Acute Assessment and Plan: see above. Data The data obtained during this sleep study is adequate for interpretation. Certification This sleep study has been reviewed by a board certified sleep medicine physician.
[2025-03-15 10:07] VITALS: BMI 41.3
== END 2025-02-13 07:27 | disposition home or self-care (01) ==
LOC: CHSCSM 19:40
PROVIDERS: PCP Nurse Practitioner Family; Visit Provider Physician Assistant
DX: G47.33 Obstructive sleep apnea (adult) (pediatric) (principal); I10 Essential (primary) hypertension; Z87.891 Personal history of nicotine dependence; E11.9 Type 2 diabetes mellitus without complications; K21.9 Gastro-esophageal reflux disease without esophagitis; E66.01 Morbid (severe) obesity due to excess calories; Z68.41 Body mass index [BMI] 40.0-44.9, adult
CPT/HCPCS: 95811